=== PATIENT | female | born 1980 | race Two or more races ===

== ENCOUNTER 2020-05-30 12:10 | Outpatient (REF) | payer OTHER, SELFPAY ==
--- NOTE | 2020-05-30 | MM_ITS ---
EXAMINATION: BONE DENSITOMETRY CLINICAL INDICATION: Screening for osteoporosis. COMPARISON: None (current study represents initial baseline exam). TECHNIQUE: Using a [employer] DD DXA System (software version: 13.1) manufactured by [employer], dual-energy x-ray absorptiometry was performed of the lumbar spine and left hip. The images are of good technical quality. Summary results are attached. FINDINGS: AP SPINE L1-L4: BMD 1.092 g/cm2, Z-score -0.8, T-score -0.7, normal. LEFT FEMUR, NECK: BMD 1.054 g/cm2, Z-score 0.5, T-score 0.1, normal. LEFT FEMUR, TOTAL: BMD 1.060 g/cm2, Z-score 0.6, T-score 0.4, normal. IDENTIFIED RISK FACTORS: Early menopause, secondary osteoporosis, rheumatoid arthritis, hysterectomy, left oophorectomy. HISTORY OF FRACTURE: None listed. MEDICATIONS: None listed. MM/XR DEXA axial skeleton IMPRESSION: 1. DIAGNOSIS: Normal bone density based on the lowest T-score value of -0.7 in the lumbar spine applying World Health Organization criteria. 2. 10-YEAR FRACTURE RISK PREDICTION, FRAX: Major osteoporotic fracture (clinical spine, forearm, hip or shoulder) 1.4%. Hip fracture 0.0%. 3. Treatment Recommendations: NOF guidelines recommend consideration for treatment in postmenopausal women and men age 50 and older presenting with the following: -A hip or vertebral (clinical or morphometric) fracture. -T-score less than or equal to -2.5 at the femoral neck or spine after appropriate evaluation to exclude secondary causes. -Low bone mass at the hip or spine and a 10-year fracture probability by FRAX of greater than or equal to 3% for hip fracture or greater than or equal to 20% for major osteoporotic fracture based on the [place] adapted WHO algorithm. 4. Other Recommendations: All treatment decisions require clinical judgment and consideration of individual patient factors, including patient preferences, comorbidities, previous drug use, risk factors not captured in the FRAX model (e.g. frailty, falls, vitamin D deficiency, increased bone turnover, interval significant decline in bone density) and possible under or overestimation of fracture risk by FRAX. FUTURE SCAN RECOMMENDATION: People with diagnosed cases of osteoporosis or at high risk for fracture should have regular bone mineral density tests. For patients eligible for Medicare, routine testing is allowed once every 2 years. The testing frequency can be increased to one year for patients who have rapidly progressing disease, those who are receiving or discontinuing medical therapy to restore bone mass, or have additional risk factors.
--- NOTE | 2020-05-30 | MM_ITS ---
EXAMINATION: MM SCREENING DIGITAL BREAST TOMOSYNTHESIS, BILATERAL CLINICAL INFORMATION: Screening. Asymptomatic. No prior breast imaging. Age 40. Family history premenopausal breast cancer, maternal aunt (40s). The lifetime risk of breast cancer based on the Tyrer-Cuzick Model is 14%. COMPARISON: None (current study represents initial baseline exam). TECHNIQUE: Digital breast tomosynthesis is performed in both the craniocaudal and mediolateral oblique views along with computer-aided detection (CAD). Synthesized 2D images are generated from the tomosynthesis. Additional left MLO view is provided. FINDINGS: The breasts are heterogeneously dense, which may obscure small masses (ACR BI-RADS breast composition Category c). Breast tissue composition borders on extremely dense in the upper outer quadrants. There is no significant mass or architectural abnormality. The axilla and skin contours are unremarkable. Right breast shows no abnormal calcifications. Left breast has a few punctate calcifications posterior upper outer quadrant. Patient will be recalled to obtain magnification views to fully characterize. MM/MM tomosynthesis screening BI IMPRESSION: 1. Left: There are a some loosely grouped punctate calcifications posterior upper outer quadrant. 2. Right: No mammographic evidence of malignancy. ASSESSMENT: BI-RADS 0: Incomplete - Need Additional Imaging Evaluation RECOMMENDATION: 1. Additional views of the left breast (magnification outer CC, magnification ML). 2. Radiology department staff will contact the patient for additional imaging. This patient's information was entered into a reminder system with a target due date for their next mammogram.
== END 2020-05-30 12:11 | disposition home or self-care (01) ==
LOC: HO.MAMMO 12:10
PROVIDERS: Visit Provider Family Medicine
DX: Z12.31 Encounter for screening mammogram for malignant neoplasm of breast (principal); Z13.820 Encounter for screening for osteoporosis; Z78.0 Asymptomatic menopausal state; M06.9 Rheumatoid arthritis, unspecified; Z90.710 Acquired absence of both cervix and uterus; Z90.721 Acquired absence of ovaries, unilateral
CPT/HCPCS: 77063; 77067; 77080

== ENCOUNTER 2020-06-22 09:43 | Outpatient (REF) | payer OTHER, SELFPAY ==
--- NOTE | 2020-06-22 11:38 | XR_ITS ---
EXAMINATION: XR HAND, BILATERAL CLINICAL INFORMATION: Pain COMPARISON: None available at the time of this dictation. TECHNIQUE: Frontal lateral oblique views of both hands were obtained. Additional scaphoid views acquired. FINDINGS: There is no fracture or dislocation. Radiocarpal, intercarpal, carpometacarpal, metacarpophalangeal and interphalangeal joints are intact. There are no osteolytic or osteoblastic lesions. There are no bone erosions. Surrounding soft tissue unremarkable. XR/XR hand wrist RT IMPRESSION: Normal radiograph. No evidence of a fracture or dislocations. No significant bone erosions or significant arthritis.
--- NOTE | 2020-06-22 11:38 | XR_ITS ---
EXAMINATION: XR HAND, BILATERAL CLINICAL INFORMATION: Pain COMPARISON: None available at the time of this dictation. TECHNIQUE: Frontal lateral oblique views of both hands were obtained. Additional scaphoid views acquired. FINDINGS: There is no fracture or dislocation. Radiocarpal, intercarpal, carpometacarpal, metacarpophalangeal and interphalangeal joints are intact. There are no osteolytic or osteoblastic lesions. There are no bone erosions. Surrounding soft tissue unremarkable. XR/XR hand wrist LT IMPRESSION: Normal radiograph. No evidence of a fracture or dislocations. No significant bone erosions or significant arthritis.
[2020-06-22 11:57] LABS: MANUAL DIFF FLAG NO
[2020-06-22 12:18] LABS: Basophils Percent Auto 0.2 % (0-2); Eosinophils Absolute Auto 0.1 X10*3/uL (0.0-0.4); Eosinophils Percent Auto 1.2 % (0-4); Hematocrit 38.2 % (37-47); Hemoglobin 12.5 g/dl (12.0-16.0); Imm Gran Abs Auto 0.02 X10*3/uL (0.00-0.03); Imm Gran Pct Auto 0.4 % (0.0-0.4); Lymphocytes Absolute Auto 1.1 X10*3/uL (1.2-4.9); Lymphocytes Percent Auto 22.1 % (20-40); Mean Corpuscular HGB Conc 32.7 g/dl (31.0-35.0); Mean Corpuscular Hemoglobin 28.5 pg (27.0-33.0); Mean Corpuscular Volume 87.2 fL (80-98); Mean Platelet Volume 12.1 fL (9.4-12.3); Monocytes Absolute Auto 0.3 X10*3/uL (0.1-1.2); Monocytes Percent Auto 6.2 % (2-11); Neutrophils Absolute Auto 3.5 X10*3/uL (2.0-8.3); Neutrophils Percent Auto 69.9 % (45-73); Platelet Count 221 X10*3/uL (160-400); Red Blood Count 4.38 X10*6/uL (4.20-5.50); Red Cell Distribution Width 12.4 % (11.0-16.0)
[2020-06-22 12:24] LABS: Glucose Urine UA NEG (NEG); Leukocyte Esterase Urine NEG (NEG); Nitrite Urine NEG (NEG); Specific Gravity - Urine >= 1.030 (1.005-1.025); Urine Blood 3+ (NEG); Urine Ketones NEG (NEG); Urine Protein 1+ MG/DL (NEG-TRACE)
[2020-06-22 12:35] LABS: Appearance Urine CLOUDY; Color Urine AMBER
[2020-06-22 12:40] LABS: Alanine Aminotransferase 13 U/L (0-31); Albumin Level 3.9 g/dL (3.5-5.0); Alkaline Phosphatase 58 U/L (39-117); Anion Gap 11 (12-20); Aspartate Amino Transferase 13 U/L (5-31); Bilirubin Total 0.7 mg/dL (0.0-1.0); Blood Urea Nitrogen 14 mg/dL (9-16); C Reactive Protein 0.29 mg/dL (< or = 0.50); Calcium 8.6 mg/dL (8.4-10.2); Carbon Dioxide 26 mmol/L (22-29); Chloride 104 mmol/L (96-108); Creatinine Clr Calc Pharmacy 111.4; Estimated Glomerular Filt Rate > 60; Glucose Random 84 mg/dL (60-115); Potassium 4.4 mmol/l (3.3-5.1); Rheumatoid Factor 15.8 IU/mL (<15.0); Sodium 137 mmol/L (135-145); Total Protein 7.5 g/dL (6.5-8.0)
[2020-06-22 12:45] LABS: Squamous Epithelial Cell Urine TRACE /LPF; WBC Urine 0 /HPF (0-4)
[2020-06-22 13:52] LABS: Erythrocyte Sedimentation Rate 14 MM/HR (0-20)
[2020-06-23 08:09] LABS: HBsAGNum1 0.23 S/CO (0.00-0.99); Hepatitis A Antibody IgM 0.07 Index (0-0.79); Hepatitis B Surface Antigen Negative (Negative); ~Hepatitis A Antibody IgM Nonreactive (Nonreactive)
[2020-06-23 08:21] LABS: HBc Num1 0.17 S/CO (0.00-0.79); Hepatitis B Core Antibody Nonreactive (Nonreactive); ~HepC Num1 0.68 S/CO (0.00-0.79); ~Hepatitis C Antibody Nonreactive (Nonreactive)
[2020-06-23 11:13] LABS: Complement C3 74 mg/dL (83-193)
[2020-06-23 11:56] LABS: HBS Num1 9.92 mIU/mL (0-7.99)
[2020-06-23 12:05] LABS: HBS Num2 10.65 mIU/mL (0-7.99); HBS Num3 9.92 mIU/mL (0-7.99); ~Hepatitis B Surface Antibody GRAYZONE (Nonreactive)
[2020-06-24 11:05] LABS: Cyclic Citrullinated Peptide <16
[2020-06-24 11:09] LABS: Scleroderma 70 Antibody <1.0 NEG
[2020-06-26 08:11] LABS: Vitamin D 25-OH, D3 SEE ABOVE; Vitamin D 25-OH, Total SEE ABOVE
[2020-06-26 09:53] LABS: TS Negative Control PASSED; TS Panel A 0; TS Panel B 0; TS Positive Control PASSED
[2020-06-26 09:54] LABS: TSpotTB NEGATIVE
== END 2020-06-22 09:44 | disposition home or self-care (01) ==
LOC: HO.XRAY 09:43
PROVIDERS: PCP Family Medicine; Visit Provider Student in an Organized Health Care Education/Training Program
DX: M25.50 Pain in unspecified joint (principal); R76.8 Other specified abnormal immunological findings in serum
CPT/HCPCS: 36415; 73110; 73130; 80053; 81001; 82306; 85025; 85652; 86140; 86160; 86200; 86225; 86235; 86431; 86481; 86704; 86706; 86709; 86803; 87340; 99202

== ENCOUNTER 2020-06-27 10:51 | Outpatient (REF) | payer OTHER, SELFPAY ==
--- NOTE | 2020-06-27 10:57 | MM_ITS ---
EXAMINATION: MM DIAGNOSTIC DIGITAL MAMMOGRAPHY, LEFT CLINICAL INFORMATION: Recall from baseline mammography for loosely grouped punctate calcifications posterior upper outer left breast. COMPARISON: Mammography: 05/30/2020 (baseline) TECHNIQUE: Digital mammography is performed in the following views: Magnification CC, magnification ML. FINDINGS: The breasts are heterogeneously dense, which may obscure small masses (ACR BI-RADS breast composition Category c). The additional magnification views show a few punctate round calcifications in the area of interest. There are no pleomorphic calcifications or ductal distribution. Results are discussed with the patient at time of visit. The calcifications appear benign. As chronicity is unknown, short interval follow-up will be requested in 6 months to confirm stability. MM/MM added views LT IMPRESSION: Benign-appearing calcifications in area of interest posterior upper outer left breast, unknown chronicity. ASSESSMENT: BI-RADS 3: Probably Benign RECOMMENDATION: Diagnostic left mammography in 6 months. This patient's information was entered into a reminder system with a target due date for their next mammogram.
== END 2020-06-27 10:52 | disposition home or self-care (01) ==
LOC: HO.MAMMO 10:51
PROVIDERS: PCP Family Medicine; Visit Provider Family Medicine
DX: R92.1 Mammographic calcification found on diagnostic imaging of breast (principal)
CPT/HCPCS: 77065

== ENCOUNTER 2020-06-30 15:49 | Outpatient (REF) | payer OTHER, SELFPAY | END 2020-06-30 15:50 | disposition home or self-care (01) | LOC: HO.LAB 15:49 | PROVIDERS: Visit Provider Internal Medicine | DX: Z20.822 Contact with and (suspected) exposure to COVID-19 (principal) | CPT/HCPCS: 36415; C9803; U0003 ==

== ENCOUNTER → 2020-07-14 08:35 | Outpatient (BNVA) | payer OTHER, SELFPAY | PROVIDERS: PCP Family Medicine; Visit Provider Student in an Organized Health Care Education/Training Program | DX: R76.8 Other specified abnormal immunological findings in serum (principal); E55.9 Vitamin D deficiency, unspecified; M25.50 Pain in unspecified joint | CPT/HCPCS: 99212 ==

== ENCOUNTER 2020-07-27 08:22 | Outpatient (REF) | payer OTHER, SELFPAY | END 2020-07-27 08:23 | disposition home or self-care (01) | LOC: HO.LAB 08:22 | PROVIDERS: Visit Provider Internal Medicine | DX: Z20.822 Contact with and (suspected) exposure to COVID-19 (principal) | CPT/HCPCS: 36415; C9803; U0003; U0005 ==

== ENCOUNTER 2020-08-24 11:48 | Outpatient (REF) | payer OTHER, SELFPAY | END 2020-08-24 11:49 | disposition home or self-care (01) | LOC: HO.LAB 11:48 | PROVIDERS: Visit Provider Internal Medicine | DX: Z20.822 Contact with and (suspected) exposure to COVID-19 (principal) | CPT/HCPCS: 36415; C9803; U0003; U0005 ==

== ENCOUNTER 2020-10-19 11:24 | Outpatient (REF) | payer OTHER, SELFPAY ==
[2020-10-19 12:29] LABS: MANUAL DIFF FLAG NO
[2020-10-19 12:35] LABS: Basophils Percent Auto 0.1 % (0-2); Eosinophils Absolute Auto 0.1 X10*3/uL (0.0-0.4); Eosinophils Percent Auto 1.6 % (0-4); Hematocrit 35.7 % (37-47); Hemoglobin 11.6 g/dl (12.0-16.0); Imm Gran Abs Auto 0.03 X10*3/uL (0.00-0.03); Imm Gran Pct Auto 0.4 % (0.0-0.4); Lymphocytes Absolute Auto 1.6 X10*3/uL (1.2-4.9); Lymphocytes Percent Auto 23.3 % (20-40); Mean Corpuscular HGB Conc 32.5 g/dl (31.0-35.0); Mean Platelet Volume 11.7 fL (9.4-12.3); Monocytes Absolute Auto 0.2 X10*3/uL (0.1-1.2); Monocytes Percent Auto 2.2 % (2-11); Neutrophils Absolute Auto 4.9 X10*3/uL (2.0-8.3); Neutrophils Percent Auto 72.4 % (45-73); Platelet Count 204 X10*3/uL (160-400); Red Blood Count 4.15 X10*6/uL (4.20-5.50); Red Cell Distribution Width 12.8 % (11.0-16.0); White Blood Count 6.8 X10*3/uL (4.8-10.8)
[2020-10-19 12:46] LABS: Glucose Urine UA NEG (NEG); Leukocyte Esterase Urine NEG (NEG); Nitrite Urine NEG (NEG); PH 6.5 (5.0-8.0); Urine Blood NEG (NEG); Urine Ketones NEG (NEG); Urine Protein NEG (NEG-TRACE)
[2020-10-19 12:48] LABS: Appearance Urine CLEAR; Color Urine YELLOW
[2020-10-19 12:55] LABS: Alanine Aminotransferase 8 U/L (0-31); Albumin Level 3.8 g/dL (3.5-5.0); Alkaline Phosphatase 50 U/L (39-117); Anion Gap 11 (12-20); Aspartate Amino Transferase 13 U/L (5-31); Bilirubin Total 0.5 mg/dL (0.0-1.0); Blood Urea Nitrogen 11 mg/dL (9-16); Carbon Dioxide 28 mmol/L (22-29); Chloride 104 mmol/L (96-108); Estimated Glomerular Filt Rate > 60; Glucose Random 88 mg/dL (60-115); Potassium 4.2 mmol/L (3.3-5.1); Sodium 139 mmol/L (135-145); Total Protein 7.1 g/dL (6.5-8.0)
[2020-10-19 13:18] LABS: Bacteria Urine TRACE /LPF; RBC Urine 0 /HPF (0); Squamous Epithelial Cell Urine 1+ /LPF; WBC Urine 0 /HPF (0-4)
[2020-10-19 13:53] LABS: Erythrocyte Sedimentation Rate 16 MM/HR (0-20)
[2020-10-19 14:00] LABS: Creatinine Urine 19.94 mg/dL; Total Protein Urine Random < 7 mg/dL (<12)
[2020-10-20 11:26] LABS: Complement C3 87 mg/dL (83-193)
[2020-10-20 12:16] LABS: Anti DNA DS Antibody 5 IU/mL; Antibody to SS-B Antigen <1.0 NEG AI (<1.0 NEG); SM/Ribonucleoprotein Ab <1.0 NEG AI (<1.0 NEG); Scleroderma 70 Antibody <1.0 NEG AI (<1.0 NEG); Smith Protein <1.0 NEG AI (<1.0 NEG)
[2020-10-21 21:12] LABS: TS Negative Control Passed; TS Panel A 0; TS Panel B 0; TS Positive Control Passed; TSpotTB Negative (SeeBelow)
[2020-10-24 12:33] LABS: Cyclic Citrullinated Peptide <16 UNITS
[2020-10-26 17:01] LABS: Vitamin D 25-OH, D2 <4 ng/mL; Vitamin D 25-OH, D3 51 ng/mL; Vitamin D 25-OH, Total 51 ng/mL (30-100)
== END 2020-10-19 11:25 | disposition home or self-care (01) ==
LOC: HO.LAB 11:24
PROVIDERS: PCP Family Medicine; Visit Provider Student in an Organized Health Care Education/Training Program
DX: R76.8 Other specified abnormal immunological findings in serum (principal)
CPT/HCPCS: 36415; 80053; 81001; 82306; 84156; 85025; 85652; 86140; 86160; 86200; 86225; 86235; 86481

== ENCOUNTER 2020-10-31 10:13 | Outpatient (REF) | payer OTHER, SELFPAY ==
[2020-10-31 12:24] LABS: Glucose Urine UA NEG (NEG); Leukocyte Esterase Urine NEG (NEG); Nitrite Urine NEG (NEG); Urine Blood 3+ (NEG); Urine Ketones NEG (NEG); Urine Protein NEG (NEG-TRACE)
[2020-10-31 12:29] LABS: Appearance Urine CLEAR; Color Urine YELLOW
[2020-10-31 12:50] LABS: Squamous Epithelial Cell Urine 1+ /LPF; WBC Urine 0 /HPF (0-4)
[2020-11-01 08:13] LABS: HBc Num1 0.13 S/CO (0.00-0.79); HIV AB/AG Nonreactive (Nonreactive); HIV Num 1 0.06 S/CO (0.00-0.99); Hepatitis B Core Antibody Nonreactive (Nonreactive)
[2020-11-01 08:38] LABS: ~HepC Num1 0.66 S/CO (0.00-0.79); ~Hepatitis C Antibody Nonreactive (Nonreactive)
[2020-11-01 09:07] LABS: Syphilis Screen Nonreactive (Nonreactive)
[2020-11-01 10:57] LABS: Complement C3 40 mg/dL (83-193)
[2020-11-01 12:31] LABS: Anti DNA DS Antibody 5 IU/mL
[2020-11-01 12:51] LABS: CT PCR NOT DETECTED (Not Detect.); NG PCR NOT DETECTED (Not Detect.)
[2020-11-03 06:31] LABS: HPV mRNA E6/E7 rflx Not Detected (Not Detected)
== END 2020-10-31 10:14 | disposition home or self-care (01) ==
LOC: HO.LAB 10:13
PROVIDERS: Student in an Organized Health Care Education/Training Program; PCP Family Medicine; Visit Provider Advanced Practice Midwife
DX: Z01.419 Encounter for gynecological examination (general) (routine) without abnormal findings (principal); Z11.3 Encounter for screening for infections with a predominantly sexual mode of transmission; Z11.51 Encounter for screening for human papillomavirus (HPV); Z11.4 Encounter for screening for human immunodeficiency virus [HIV]; Z01.84 Encounter for antibody response examination; Z20.2 Contact with and (suspected) exposure to infections with a predominantly sexual mode of transmission; R76.8 Other specified abnormal immunological findings in serum
CPT/HCPCS: 36415; 81001; 86160; 86225; 86704; 86780; 86803; 87389; 87491; 87591; 87624; 88142

== ENCOUNTER → 2020-11-07 12:51 | Outpatient (BNVA) | payer OTHER, SELFPAY | PROVIDERS: PCP Family Medicine; Visit Provider Student in an Organized Health Care Education/Training Program | DX: R76.8 Other specified abnormal immunological findings in serum (principal); E55.9 Vitamin D deficiency, unspecified; M75.101 Unspecified rotator cuff tear or rupture of right shoulder, not specified as traumatic; M75.102 Unspecified rotator cuff tear or rupture of left shoulder, not specified as traumatic | CPT/HCPCS: 99212 ==

== ENCOUNTER 2020-12-25 09:47 | Outpatient (REF) | payer OTHER, SELFPAY ==
--- NOTE | ~2020-12-25 | MM_ITS ---
EXAMINATION: MM DIAGNOSTIC DIGITAL BREAST TOMOSYNTHESIS, LEFT CLINICAL INFORMATION: Short interval six-month follow-up probable benign loosely grouped calcifications posterior upper outer left breast initially noted at baseline exam. Family history premenopausal breast cancer, maternal aunt. The lifetime risk of breast cancer based on the Tyrer-Cuzick Model is 14%. COMPARISON: Mammography: 06/27/2020, 05/30/2020 (BI-RADS 0, baseline). TECHNIQUE: Digital breast tomosynthesis is performed in both the craniocaudal and mediolateral oblique views along with computer-aided detection (CAD). Synthesized 2D images are generated from the tomosynthesis. FINDINGS: The breasts are heterogeneously dense, which may obscure small masses (ACR BI-RADS breast composition Category c). There is no interval mass or architectural abnormality. The loosely grouped round calcifications posterior upper outer left breast is similar to prior diagnostic exam. They will be reassessed at annual bilateral mammography, due in 6 months. Results are provided to the patient at time of visit by the technologist. MM/MM tomosynthesis diagnostic LT IMPRESSION: No significant changes from prior diagnostic exam. ASSESSMENT: BI-RADS 3: Probably Benign RECOMMENDATION: Diagnostic mammography at time of annual bilateral mammography, due in 6 months. This patient's information was entered into a reminder system with a target due date for their next mammogram.
[2020-12-25 11:46] LABS: MANUAL DIFF FLAG NO
[2020-12-25 11:51] LABS: Basophils Percent Auto 0.4 % (0-2); Eosinophils Absolute Auto 0.1 X10*3/uL (0.0-0.4); Eosinophils Percent Auto 1.9 % (0-4); Hematocrit 39.1 % (37-47); Hemoglobin 12.9 g/dl (12.0-16.0); Imm Gran Abs Auto 0.02 X10*3/uL (0.00-0.03); Imm Gran Pct Auto 0.4 % (0.0-0.4); Lymphocytes Absolute Auto 1.2 X10*3/uL (1.2-4.9); Lymphocytes Percent Auto 21.6 % (20-40); Mean Corpuscular Hemoglobin 28.4 pg (27.0-33.0); Mean Corpuscular Volume 85.9 fL (80-98); Mean Platelet Volume 11.8 fL (9.4-12.3); Monocytes Absolute Auto 0.2 X10*3/uL (0.1-1.2); Monocytes Percent Auto 3.4 % (2-11); Neutrophils Absolute Auto 3.9 X10*3/uL (2.0-8.3); Neutrophils Percent Auto 72.3 % (45-73); Platelet Count 199 X10*3/uL (160-400); Red Blood Count 4.55 X10*6/uL (4.20-5.50); Red Cell Distribution Width 12.3 % (11.0-16.0); White Blood Count 5.3 X10*3/uL (4.8-10.8)
[2020-12-25 12:10] LABS: Alanine Aminotransferase 16 U/L (0-31); Albumin Level 3.9 g/dL (3.5-5.0); Alkaline Phosphatase 53 U/L (39-117); Anion Gap 11 (12-20); Aspartate Amino Transferase 17 U/L (5-31); Bilirubin Total 0.8 mg/dL (0.0-1.0); Blood Urea Nitrogen 10 mg/dL (9-16); C Reactive Protein 0.42 mg/dL (< or = 0.50); Carbon Dioxide 26 mmol/L (22-29); Chloride 104 mmol/L (96-108); Estimated Glomerular Filt Rate > 60; Glucose Random 89 mg/dL (60-115); Potassium 4.3 mmol/L (3.3-5.1); Sodium 137 mmol/L (135-145); Total Protein 7.4 g/dL (6.5-8.0)
[2020-12-25 12:36] LABS: Erythrocyte Sedimentation Rate 9 MM/HR (0-20)
[2020-12-25 13:01] LABS: Glucose Urine UA NEG (NEG); Leukocyte Esterase Urine NEG (NEG); Nitrite Urine POS (NEG); Specific Gravity - Urine 1.025 (1.005-1.025); Urine Blood 3+ (NEG); Urine Ketones NEG (NEG); Urine Protein NEG (NEG-TRACE)
[2020-12-25 13:04] LABS: Appearance Urine HAZY; Color Urine YELLOW
[2020-12-25 13:15] LABS: Amorphous Sediment Urine 2+ /LPF; Bacteria Urine TRACE /LPF; RBC Urine 0 /HPF (0); Squamous Epithelial Cell Urine 2+ /LPF; WBC Urine 0-2 /HPF (0-4)
[2020-12-26 15:12] LABS: Complement C3 96 mg/dL (83-193)
[2020-12-27 14:56] LABS: Anti DNA DS Antibody 4 IU/mL
== END 2020-12-25 09:48 | disposition home or self-care (01) ==
LOC: HO.MAMMO 09:47
PROVIDERS: Student in an Organized Health Care Education/Training Program; PCP Family Medicine; Visit Provider Family Medicine
DX: R92.1 Mammographic calcification found on diagnostic imaging of breast (principal); R76.8 Other specified abnormal immunological findings in serum
CPT/HCPCS: 36415; 77061; 77065; 80053; 81001; 85025; 85652; 86140; 86160; 86225

== ENCOUNTER → 2021-01-10 15:29 | Outpatient (BNVA) | payer OTHER, SELFPAY | PROVIDERS: Visit Provider Student in an Organized Health Care Education/Training Program | DX: R76.8 Other specified abnormal immunological findings in serum (principal); E55.9 Vitamin D deficiency, unspecified | CPT/HCPCS: 99212 ==

== ENCOUNTER 2021-01-26 15:00 | Outpatient (RCR) | payer OTHER, SELFPAY ==
--- NOTE | 2021-01-17 16:02 | MHC.PT.EP ---
[facility] [place] Office [place] Office [place] Office [address] Juan Guerrero [address] [phone] F: [phone] F: [phone] F: [phone] F: [phone] Physical Therapy Plan of Care Date of Evaluation: Date of Surgery: N/A Diagnosis: rotator cuff tear, right shoulder Assessment: pt's signs and symptoms consistent with cervical radiculopathy as pt centralized with repeated retractions. pt had no reproduction of symptoms w/ TOS testing or ULTTs. pt presents to physical therapy with pain, decreased range of motion, decreased strength, impaired functional mobility, and impaired postural awareness. pt is a good candidate for skilled PT due to age, potential remediation of impairments, typical disease/condition progression and prognosis, comorbidities, and motivation. pt would benefit from tailored strengthening and stretching exercise program, functional training, postural re-training, neuromuscular re-education, modalities as needed for pain, equipment safety demonstration. Frequency and Duration: The patient will be seen 2x/wk for 5 wks Short Term Goals: pt will be I w/ HEP to promote self-management of condition. pt will demo proper sitting w/ lumbar roll to promote neutral spine to reduce radicular symptoms. 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 pt will improve B shoulder flexion and abduction strength by >1 MMT grade to promote ease in carrying groceries. Treatment Plan: Modalities to reduce pain, spasms and effusion. Manual therapy to restore motion and function. Therapeutic exercise to improve strength and flexibility. Neuromuscular re-education for posture and balance. Therapeutic activities to return to functional activities of daily living. Electronically signed by: Trinity Coon PT, DPT Please sign and return to therapist. Thank you for your referral.
--- NOTE | 2021-02-02 14:17 | MHC.PT.DC ---
[facility] [place] Office [place] Office [place] Office [address] Juan Guerrero [address] [facility] [phone] F: [phone] F: [phone] F: [phone] F: [phone] Physical Therapy Discharge Report Diagnosis: rotator cuff tear, right shoulder Date of Surgery: N/A Date of Evaluation: 01/17/21 Date of Discharge: 02/02/21 Treatments to Date: 2 Cancellations to Date: 0 No Shows to Date: 3 Discharge Status: Visit Non-compliance Discharge Summary: The patient has no showed three total appointments. Per [facility] policy she is discharged from this physical therapy plan of care. Electronically signed by: Trinity Coon PT, DPT Please sign and return to therapist. Thank you for your referral.
== END 2021-02-02 14:18 | disposition home or self-care (01) ==
LOC: HO.PT 15:00
PROVIDERS: PCP Family Medicine; Visit Provider Student in an Organized Health Care Education/Training Program
DX: M75.101 Unspecified rotator cuff tear or rupture of right shoulder, not specified as traumatic (principal)
CPT/HCPCS: 97110; 97150; 97162

== ENCOUNTER 2021-07-04 14:38 | Outpatient (REF) | payer OTHER, SELFPAY ==
--- NOTE | ~2021-07-04 | MM_ITS ---
EXAMINATION: MM DIAGNOSTIC DIGITAL BREAST TOMOSYNTHESIS, BILATERAL CLINICAL INFORMATION: Due for yearly. Also follow-up probable benign calcifications posterior upper outer left breast initially noted at baseline exam. Family history premenopausal breast cancer, maternal aunt. The lifetime risk of breast cancer based on the Tyrer-Cuzick Model is 11%. COMPARISON: Mammography: 12/25/2020, 06/27/2020, 05/30/2020 (baseline, BI-RADS 0) TECHNIQUE: Digital breast tomosynthesis is performed in both the craniocaudal and mediolateral oblique views along with computer-aided detection (CAD). Synthesized 2D images are generated from the tomosynthesis. Additional views are obtained: Left MLO, standard magnification left CC, magnification left ML. FINDINGS: The breasts are heterogeneously dense, which may obscure small masses (ACR BI-RADS breast composition Category c). Denser breast tissue composition is predominantly in the upper outer quadrants. Parenchymal pattern is similar to prior studies. There is no developing density or interval mass or architectural abnormality. The axilla and skin contours are unremarkable. A few loosely grouped round calcifications posterior upper outer left breast are stable. There are benign-appearing. They will be reassessed again at time of annual bilateral mammography, due in 12 months. Results are provided to the patient at time of visit by the technologist. MM/MM tomosynthesis diagnostic BI IMPRESSION: No significant changes from prior exams. ASSESSMENT: BI-RADS 3: Probably Benign RECOMMENDATION: Diagnostic mammography at time of next annual exam, due in 12 months. This patient's information was entered into a reminder system with a target due date for their next mammogram.
== END 2021-07-04 14:39 | disposition home or self-care (01) ==
LOC: HO.MAMMO 14:38
PROVIDERS: PCP Family Medicine; Visit Provider Hospitalist
DX: R92.8 Other abnormal and inconclusive findings on diagnostic imaging of breast (principal)
CPT/HCPCS: 77062; 77066

== ENCOUNTER 2021-11-02 10:08 | Outpatient (REF) | payer OTHER, SELFPAY ==
[2021-11-02 17:12] LABS: CT PCR NOT DETECTED (Not Detect.); NG PCR NOT DETECTED (Not Detect.)
== END 2021-11-02 10:09 | disposition home or self-care (01) ==
LOC: HO.LAB 10:08
PROVIDERS: PCP Family Medicine; Visit Provider Advanced Practice Midwife
DX: Z01.419 Encounter for gynecological examination (general) (routine) without abnormal findings (principal); Z20.2 Contact with and (suspected) exposure to infections with a predominantly sexual mode of transmission; N39.3 Stress incontinence (female) (male)
CPT/HCPCS: 87491; 87591

== ENCOUNTER 2022-07-15 10:22 | Outpatient (REF) | payer OTHER, SELFPAY ==
--- NOTE | ~2022-07-15 | MM_ITS ---
EXAMINATION: MM DIAGNOSTIC DIGITAL BREAST TOMOSYNTHESIS, BILATERAL CLINICAL INFORMATION: Due for yearly. Also follow-up probable benign calcifications posterior upper outer left breast initially noted at baseline exam. Family history premenopausal breast cancer, maternal aunt. TC score 11%. COMPARISON: Mammography: 07/04/2021, 12/25/2020, 06/27/2020, 05/30/2020 (baseline, BI-RADS 0). TECHNIQUE: Digital breast tomosynthesis is performed in both the craniocaudal and mediolateral oblique views along with computer-aided detection (CAD). Synthesized 2D images are generated from the tomosynthesis. FINDINGS: The breasts are heterogeneously dense, which may obscure small masses (ACR BI-RADS breast composition Category c). There are no significant masses, abnormal calcifications, or other abnormalities. Breast tissue composition borders on extremely dense in the upper outer quadrants. Parenchymal pattern is similar to prior exams. There is no developing density or interval mass or architectural abnormality. The benign-appearing calcifications posterior left breast noted at baseline are stable and now considered to be benign. The axilla and skin contours are unremarkable. No significant changes. Results are provided to the patient at time of visit by the technologist. MM/MM tomosynthesis diagnostic BI IMPRESSION: -No mammographic evidence of malignancy. ASSESSMENT: BI-RADS 2: Benign RECOMMENDATION: Routine annual mammography screening. This patient's information was entered into a reminder system with a target due date for their next mammogram.
== END 2022-07-15 10:23 | disposition home or self-care (01) ==
LOC: HO.MAMMO 10:22
PROVIDERS: Visit Provider Hospitalist
DX: R92.1 Mammographic calcification found on diagnostic imaging of breast (principal)
CPT/HCPCS: 77062; 77066

== ENCOUNTER → 2022-12-25 14:37 | Outpatient (BNVA) | payer SELFPAY | PROVIDERS: PCP Family Medicine; Visit Provider Physician Assistant | DX: Z02.79 Encounter for issue of other medical certificate (principal) ==

== ENCOUNTER 2023-04-15 09:54 | Outpatient (REF) | payer OTHER, SELFPAY ==
[2023-04-15 12:51] LABS: HIV AB/AG Nonreactive (Nonreactive); HIV Num 1 0.05 S/CO (0.00-0.99); Hepatitis B Core Antibody Nonreactive (Nonreactive); Syphilis Screen Nonreactive (Nonreactive); ~HepC Num1 0.25 S/CO (0.00-0.79); ~Hepatitis C Antibody Nonreactive (Nonreactive)
[2023-04-15 16:23] LABS: CT PCR NOT DETECTED (Not Detect.); NG PCR NOT DETECTED (Not Detect.)
[2023-04-16 11:18] LABS: BV Int Neg Control Negative (Negative); BV Int Pos Control Positive (Positive)
== END 2023-04-15 09:55 | disposition home or self-care (01) ==
LOC: HO.LAB 09:54
PROVIDERS: PCP Family Medicine; Visit Provider Advanced Practice Midwife
DX: Z01.419 Encounter for gynecological examination (general) (routine) without abnormal findings (principal); Z20.2 Contact with and (suspected) exposure to infections with a predominantly sexual mode of transmission
CPT/HCPCS: 0353U; 86704; 86780; 86803; 87389; 87480; 87510; 87660; 99396

== ENCOUNTER 2023-04-15 09:54 | Outpatient (AMB) | payer OTHER, SELFPAY ==
[2023-04-15 10:01] VITALS: BP 110/72; BMI 28.7
--- NOTE | 2023-04-15 10:01 | A.OFFVIS_ITS ---
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 Doing well with no concerns. She tries to eat healthy and stays active with exercise. Regular monthly menses and are normal. She denies vaginal itching and irritation. Not sexually active. STI screening offered; she accepts. Denies family history of breast, ovarian or colon cancer. Last pap smear 10/2020, was negative. Mammogram is UTD. [facility] Medical History Rheumatoid factor positive SIDNEY positive Surgical History Hx of tubal ligation H/O oophorectomy Family History Maternal Aunt History of breast cancer Cervical cancer Colon cancer Social History Household Members: Children Alcohol intake: current Alcohol intake frequency: holidays/special occasions only Patient Tobacco Use Status: Former Tobacco user Sexual orientation: Straight/Heterosexual Gender identity: Female Female Reproductive History Menstrual Age of Menarche: 10 Duration of menses: 3-5 days Date of last menstrual period: 04/09/23 control method: permanent sterilization Permanent Sterilization: BTL Total pregnancies: 2 Full term: 2 Number of Living Children: 2 Date of last pap smear: 10/31/20 (neg pap and hpv) History of abnormal pap smear: Yes (yrs ago) Date of Mammogram: 07/15/22 (Birad 2) Review of Systems Const All systems reviewed & are unremarkable except as noted in HPI and below Reports as per HPI Eyes Reports no additional complaints ENT Reports no additional complaints Card Reports no additional complaints Resp Reports no additional complaints GI Reports as per HPI and Reports no additional complaints Reports as per HPI Musc Reports no additional complaints Skin/Breast Reports as per HPI Neuro Reports no additional complaints Psych Reports no additional complaints Endo Reports no additional complaints Khris/Lymph Reports no additional complaints Aller/Immun Reports no additional complaints Physical Exam Vital Signs: Last Vital Signs BP 110/72 04/15/23 10:01 BMI result Body Mass Index 28.7 Const General: cooperative, healthy appearing, no acute distress, well developed and alert Orientation/consciousness: patient oriented x3 HEENT Head: Yes normal to inspection Eyes General: appearance normal, both eyes and all related structures Neck Neck: Yes normal visual inspection Thyroid: Thyroid normal Chest Chest palpation & inspection: normal inspection of the chest and other (no puckering, dimpling, peau de orange, retraction, discharge, masses) Breast/axilla inspection: normal inspection of the breasts Breast/axilla palpation: normal palpation of the breasts Resp Effort & Inspection: normal respiratory effort GI Inspection: Yes normal to inspection Palpation (GI): Soft to palpation Rectal Exam - Female: deferred General: Yes bladder normal to palpation External Female Exam: normal external appearance and normal appearance of the urethra Speculum Exam - Vagina: normal appearance of the vagina, normal palpation, normal vaginal discharge and other (small amt. brown blood) Speculum Exam - Cervix: normal appearance of the cervix and normal palpation Bimanual exam- vagina & uterus: normal bimanual exam, normal palpation, uterine size normal, bladder normal to palpation, normal palpation and non-tender Bimanual Exam- Adnexa, other: no masses Skin General skin exam: no rashes or lesions noted Rashes: no rashes Neuro General: patient oriented x3 Cognition (Neuro): normal cognition Extrem General: Yes normal to inspection Psych Attitude: cooperative Thought process: Normal thought process present Assessment & Plan Assessment & Plan (1) Encounter for well woman exam with routine gynecological exam: Code(s): Z01.419 - Encounter for gynecological examination (general) (routine) without abnormal findings Plan: Discussed: Current recommendations for pap smears per ASCCP guidelines. Breast awareness and periodic breast exams. Maintain a healthy lifestyle including a well balanced diet and routine exercise. Use condoms for STI and prevention. All of her questions and concerns were addressed to the best of my ability. 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 Orders: Orders Bacterial Vaginosis Panel Today Z20.2 - Contact with and (suspected) exposure to infections with a predominantly sexual mode of transmission Hepatitis B Core Antibody Today Z20.2 - Contact with and (suspected) exposure to infections with a predominantly sexual mode of transmission Syphilis Screen Today Z20.2 - Contact with and (suspected) exposure to infections with a predominantly sexual mode of transmission HIV Ab/Ag Today Z20.2 - Contact with and (suspected) exposure to infections with a predominantly sexual mode of transmission CT NG by PCR Today Z20.2 - Contact with and (suspected) exposure to infections with a predominantly sexual mode of transmission Hepatitis C Antibody Today Z20.2 - Contact with and (suspected) exposure to infections with a predominantly sexual mode of transmission Coding Level of Care Code Est Pt Prev Care 40-64y(34999) Diagnoses Encounter for well woman exam with routine gynecological exam Z01.419
== END 2023-04-15 10:26 | disposition home or self-care (01) ==
LOC: HO.HWS 09:54
PROVIDERS: PCP Family Medicine; Visit Provider Advanced Practice Midwife
DX: Z01.419 Encounter for gynecological examination (general) (routine) without abnormal findings (principal)
CPT/HCPCS: 99396

== ENCOUNTER 2023-04-15 10:23 | Outpatient (REF) | payer OTHER, SELFPAY | END 2023-04-15 10:24 | disposition home or self-care (01) | LOC: HO.LNP 10:23 | PROVIDERS: Visit Provider Advanced Practice Midwife | DX: Z13.89 Encounter for screening for other disorder (principal) ==

== ENCOUNTER 2023-07-14 09:40 | Outpatient (AMB) | payer OTHER, SELFPAY ==
[2023-07-14 10:21] VITALS: BP 114/74; PULSE 83; O2SAT 97; BMI 29.9
--- NOTE | 2023-07-14 10:21 | MHC.PC.OV ---
Vital Signs 07/14/23 10:21 Height 5 ft 7 in Weight 191 lb BMI 29.9 BP 114/74 Blood Pressure Location Lt brachial Position Sitting Pulse 83 Pulse Source Pulse Oximeter Pulse Oximetry (%) 97 Oxygen Delivery Method Room Air Intake Visit Reasons: re est care Intake Note: Patient is here with request of reverral for colonoscopy Allergies No Known Allergies Allergy (Verified 07/14/23 10:22) Tobacco use date assessed: 07/14/23 Dental Screening Dental Screen Date: 07/14/23 Did you have a dental visit in the last 12 months?: Yes Did you have a dental problem in the last 6 months where you did not have access to dental care?: No Was dental information given to patient?: Patient has dentist HPI re est care HPI Details New patient/Re-est. Care Prior PCP:? Last office visit/CPE: Acute issue(s): She notes polyarthralgia has improved and does not experience as much symptoms as before PMHx: Fibromyalgia, Polyarthralgia, Rheumatoid factor positive, SIDNEY positive SurgHx: Hysterectomy, Csection x2 FHx: Mom: Thyroid disease, HTN. Dad: Blood sugar and HTN. Colon polyps, Kidney stones SocHx: Cigs quit 2016. EtOH occasional. No drugs. PFSH Medical History Rheumatoid factor positive SIDNEY positive Surgical History Hx of tubal ligation H/O oophorectomy Family History Maternal Aunt History of breast cancer Cervical cancer Colon cancer Social History Household Members: Children Housing: Apartment Alcohol intake: current Alcohol intake frequency: holidays/special occasions only Patient Tobacco Use Status: Former Tobacco user e-Cigarette/Vaping Use: Never Used service: No Current occupational status: employed Current occupation: [employer] Sexual orientation: Straight/Heterosexual Gender identity: Female Cognitive needs: No Hearing needs: No Vision needs: Yes (Patient wears glasses) Female Reproductive History Menstrual Age of Menarche: 10 Questionnaire PHQ-9 Over the last 2 weeks, how often have you been bothered by any of the following problems? 1. Little interest or pleasure in doing things: not at all 2. Feeling down, depressed, or hopeless: not at all 3. Trouble falling or staying asleep, or sleeping too much: several days 4. Feeling tired or having little energy: not at all 5. Poor appetite or overeating: not at all 6. Feeling bad about yourself - or that you are a failure or have let yourself or your family down: several days 7. Trouble concentrating on things, such as reading the newspaper or watching television: not at all 8. Moving or speaking so slowly that other people could have noticed. Or the opposite - being so fidgety or restless that you have been moving around a lot more than usual: not at all 9. Thoughts that you would be better off or of hurting yourself in some way: not at all Total score: 2 Source: Developed by Drs. Jason Perez, Ethel Norton, Jonatan Escamilla and colleagues, with an educational lisa from [employer]. Thrive Questionnaire Date Thrive assessed: 07/14/23 I am a: Patient What is your living situation today?: I have a steady place to live Within the past 12 months, did the food you bought not last and you didn't have the money to get more?: Never true Within the past 12 months, did you worry whether your food would run out before you got money to buy more?: Never true Do you have trouble paying for medicines?: No Do you have trouble getting transportation to medical appointments?: No Do you have trouble paying your heating and electricity bill?: No Do you have trouble taking care of your child, family member or friend?: No Do you have trouble with day-to-day activities such as bathing, preparing meals, shopping, managing finances, etc.?: No Are you currently unemployed and looking for a job?: No Are you interested in more education?: No THRIVE Score: 0 AUDIT C Alcohol Use Questionnaire (AUDIT-C) 1. How often do you have a drink containing alcohol?: Monthly or less 2. How many drinks containing alcohol do you have on a typical day when you are drinking?: 1 or 2 3. How often do you have six or more drinks on one occasion?: Never Total Score: 1 MIKAELA-7 AMB Questionnaire MIKAELA-7 Date MIKAELA - 7 assessed: 07/14/23 Feeling nervous, anxious, or on edge: 1 = Several days Not being able to stop or control worryin = Several days Worrying too much about different things: 2 = More than half the days Trouble relaxin = Not at all Being so restless that it is hard to sit still: 0 = Not at all Becoming easily annoyed or irritable: 1 = Several days Feeling afraid as if something awful might happen: 1 = Several days Total MIKAELA-7 score (0-4 normal; 5-9 mild; 10-14 moderate; 15-21 severe): 6 Source: Developed by Drs. Jason Perez, Ethel Norton, Jonatan Escamilla and colleagues, with an educational lisa from [employer]. ACT Questionnaire In the past 4 weeks, how much of the time did your asthma keep you from getting as much done at work, school or at home?: A little of the time During the past 4 weeks, how often have you had shortness of breath?: Not at all During the past 4 weeks, how often did your asthma symptoms wake you up at night or earlier than usual in the morning?: Once a week During the past 4 weeks, how often have you had to use your rescue inhaler or nebulizer medication?: Once a week or less How would you rate your asthma control during the past 4 weeks?: Somewhat controlled Score: 19 Physical exam (Primary Care) Vital Signs: Last Vital Signs Pulse 83 07/14/23 10:21 BP 114/74 07/14/23 10:21 Pulse Ox 97 07/14/23 10:21 Oxygen Delivery Method Room Air 07/14/23 10:21 BMI result Body Mass Index 29.9 Tobacco/Smoking Status: Tobacco use Status Tobacco use date assessed 07/14/23 07/14/23 10:32 Patient Tobacco Use Status Former Tobacco user 07/14/23 10:32 e-Cigarette/Vaping Use Never Used 07/14/23 10:32 PHQ-9: PHQ-9 Score PHQ-9: Total score 2 07/14/23 10:54 Thrive Assessment: Date of Thrive Assessment Date Thrive assessed 07/14/23 07/14/23 10:32 Assessment and Plan Assessment & Plan (1) Fibromyalgia: Code(s): M79.7 - Fibromyalgia Plan: Encouraged?active?lifestyle?and?regular?exercise (2) Polyarthralgia: Code(s): M25.50 - Pain in unspecified joint Plan: Fairly?stable?at?present. Check?labs?including?inflammatory?markers Will?refer?her?back?to?Rheumatology?at?her?request (3) Rheumatoid factor positive: Code(s): R76.8 - Other specified abnormal immunological findings in serum Plan: As?above,?referred?back?to?Rheumatology (4) Family history of colon polyps, unspecified: Code(s): Z83.719 - Family history of colon polyps, unspecified Plan: Referred?to?gastroenterology?for?colon?cancer?screening (5) Laboratory exam ordered as part of routine general medical examination: Code(s): Z00.00 - Encounter for general adult medical examination without abnormal findings Orders: Orders Microalbumin, Random (w Creat) Today I10 - Essential (primary) hypertension UA and rflx microscopic Today Z00.00 - Encounter for general adult medical examination without abnormal findings SIDNEY Reflex Titer and Pattern Today R76.8 - Other specified abnormal immunological findings in serum Rheumatoid Factor Today R76.8 - Other specified abnormal immunological findings in serum Cyclic Citrullinated Peptide Today R76.8 - Other specified abnormal immunological findings in serum Erythrocyte Sedimentation Rate Today R76.8 - Other specified abnormal immunological findings in serum CRP High Sensitivity Today R76.8 - Other specified abnormal immunological findings in serum Comprehensive Spring. Panel Fast Today Z00.00 - Encounter for general adult medical examination without abnormal findings Complete Blood Count Auto Diff Today Z00.00 - Encounter for general adult medical examination without abnormal findings Lipid Panel Today Z00.00 - Encounter for general adult medical examination without abnormal findings TSH reflex Free T4 Today Z00.00 - Encounter for general adult medical examination without abnormal findings Referrals Gastroenterology Referral Z12.11 - Encounter for screening for malignant neoplasm of colon, Z83.719 - Family history of colon polyps, unspecified Rheumatology Referral M25.50 - Pain in unspecified joint Coding Level of Care Code Est Pt Level 4 (25151) Diagnoses Fibromyalgia M79.7 Polyarthralgia M25.50 Rheumatoid factor positive R76.8 Family history of colon polyps, unspecified Z83.719 Laboratory exam ordered as part of routine general medical examination Z00.00
== END 2023-07-14 11:20 | disposition home or self-care (01) ==
PROVIDERS: PCP Family Medicine; Visit Provider Family Medicine
DX: M79.7 Fibromyalgia (principal); M25.50 Pain in unspecified joint; R76.8 Other specified abnormal immunological findings in serum; Z83.719 Family history of colon polyps, unspecified; Z00.00 Encounter for general adult medical examination without abnormal findings
CPT/HCPCS: 99214

== ENCOUNTER 2023-09-09 09:52 | Outpatient (REF) | payer OTHER, SELFPAY ==
[2023-09-09 13:06] LABS: HBS Num1 8.27 mIU/mL (0-7.99); HBc Num1 0.12 S/CO (0.00-0.79); HBsAGNum1 0.39 S/CO (0.00-0.99); Hepatitis A Antibody IgM 0.17 Index (0-0.79); Hepatitis B Core Antibody Nonreactive (Nonreactive); Hepatitis B Surface Antigen Negative (Negative); ~HepC Num1 0.59 S/CO (0.00-0.79); ~Hepatitis A Antibody IgM Nonreactive (Nonreactive); ~Hepatitis C Antibody Nonreactive (Nonreactive)
[2023-09-09 13:08] LABS: Creatinine Urine 314.07 mg/dL; Protein/Creatinine Ratio, Ur 0.05 (<0.2); Total Protein Urine Random 16 mg/dL (<12)
[2023-09-09 13:09] LABS: Creatinine Urine 312.71 mg/dL; Microalbum/Creatinine Ratio Ur 9.2 ug/mg cr (<30)
[2023-09-09 13:28] LABS: Alanine Aminotransferase 13 U/L (0-31); Alkaline Phosphatase 65 U/L (39-117); Anion Gap 10 (12-20); Aspartate Amino Transferase 14 U/L (5-31); Bilirubin Total 0.9 mg/dL (0.0-1.0); Blood Urea Nitrogen 11 mg/dL (9-16); C Reactive Protein 0.34 mg/dL (< or = 0.50); Calcium 9.3 mg/dL (8.4-10.2); Carbon Dioxide 27 mmol/L (22-29); Chloride 106 mmol/L (96-108); Cholesterol 120 mg/dL (<200); Estimated Glomerular Filt Rate > 60; Glucose Fasting 89 mg/dL (60-99); HDL Cholesterol 38 mg/dL (>40); LDL Cholesterol Calculated 66 mg/dL (<100); Potassium 4.3 mmol/L (3.3-5.1); Sodium 139 mmol/L (135-145); TSH reflex Free T4 1.55 uIU/mL (0.32-4.0); Total Protein 7.9 g/dL (6.5-8.0); Triglycerides 81 mg/dL (<150)
[2023-09-09 13:31] LABS: Erythrocyte Sedimentation Rate 14 MM/HR (0-20); Rheumatoid Factor 15.5 IU/mL (<15.0)
[2023-09-09 13:56] LABS: Appearance Urine Clear; Color Urine Dark Yellow; Glucose Urine UA Negative (Negative); Leukocyte Esterase Urine Negative (Negative); Nitrite Urine Negative (Negative); PH 5.5 (5.0-9.0); Specific Gravity - Urine 1.025 (1.005-1.025); Urine Blood Negative (Negative); Urine Ketones Negative (Negative); Urine Protein Negative (Neg-Trace)
[2023-09-09 14:57] LABS: Bacteria Urine None Seen (None Seen); Hyaline Casts Urine 0-2 /LPF (0-2); RBC Urine 0-2 /HPF (0-2); WBC Urine 0-5 /HPF (0-5)
[2023-09-10 08:11] LABS: HBS Num2 8.68 mIU/mL (0-7.99); ~Hepatitis B Surface Antibody GRAYZONE (Nonreactive)
[2023-09-11 10:53] LABS: Complement C3 116 mg/dL (83-193)
[2023-09-11 14:09] LABS: Anti DNA DS Antibody 2 IU/mL; Antibody to SS-A Antigen 2.3 POS AI (<1.0 NEG); Antibody to SS-B Antigen <1.0 NEG AI (<1.0 NEG)
[2023-09-11 20:49] LABS: Cardiolipin IgG Ab <2.0 GPL-U/mL; Cardiolipin IgM Ab <2.0 MPL-U/mL
[2023-09-11 22:23] LABS: Prot Elec - Alpha1 0.3 g/dL (0.2-0.3); Prot Elec - Alpha2 0.6 g/dL (0.5-0.9); Prot Elec - Beta 1 0.6 g/dL (0.4-0.6); Prot Elec - Beta 2 0.6 g/dL (0.2-0.5); Prot Elec - Gamma 1.8 g/dL (0.8-1.7); Prot Elec - Total Protein 7.8 g/dL (6.1-8.1)
[2023-09-12 13:13] LABS: IgA 571 mg/dL (47-310); IgG 1902 mg/dL (600-1640); IgM 69 mg/dL (50-300)
[2023-09-14 13:58] LABS: DNAds, Crithidia Antibody Negative (Negative)
[2023-09-15 22:42] LABS: PTT (LAC) Screen 35 sec (<=40)
[2023-09-16 13:47] LABS: Beta-2 Glycoprotein IgA <2.0 U/mL (<20.0); Beta-2 Glycoprotein IgG <2.0 U/mL (<20.0); Beta-2 Glycoprotein IgM <2.0 U/mL (<20.0)
== END 2023-09-09 09:53 | disposition home or self-care (01) ==
LOC: HO.LAB 09:52
PROVIDERS: Absent Provider Student in an Organized Health Care Education/Training Program; PCP Family Medicine; Visit Provider Family Medicine
DX: Z00.00 Encounter for general adult medical examination without abnormal findings (principal); I10 Essential (primary) hypertension; R76.8 Other specified abnormal immunological findings in serum; M25.50 Pain in unspecified joint; M32.19 Other organ or system involvement in systemic lupus erythematosus; D68.61 Antiphospholipid syndrome; M32.9 Systemic lupus erythematosus, unspecified; Z11.59 Encounter for screening for other viral diseases; Z79.899 Other long term (current) drug therapy
CPT/HCPCS: 36415; 80053; 80061; 81001; 82043; 82570; 82784; 84156; 84165; 84443; 85597; 85598; 85613; 85652; 85730; 86140; 86146; 86147; 86160; 86225; 86235; 86255; 86334; 86431; 86704; 86706; 86709; 86803; 87340; 99212

== ENCOUNTER 2023-09-09 09:56 | Outpatient (AMB) | payer OTHER, SELFPAY ==
[2023-09-09 10:03] VITALS: BP 124/70; PULSE 96; O2SAT 98; BMI 28.9
--- NOTE | 2023-09-09 10:03 | A.OFFVIS_ITS ---
Intake Vital Signs 09/09/23 10:03 Height 5 ft 7 in Weight 184 lb 8.43 oz BMI 28.9 BP 124/70 Blood Pressure Location Rt brachial Position Sitting Pulse 96 Pulse Source Pulse Oximeter Pulse Oximetry (%) 98 Oxygen Delivery Method Room Air Intake Visit Reasons: Joint Pain/CM Intake Note: Patient last seen by Dr Jack on 01/10/21 presents today for polyarthralgia consult at the request of PCP Dr Hsieh. Allergies No Known Allergies Allergy (Verified 09/09/23 10:06) Medication List - Last Reconciled 09/09/23 by Val Barillas MD No Known Home Meds HPI HPI Comments History of Present Illness Details 43-year-old female with SLE returns for follow-up at the request of her PCP. Patient was apparently diagnosed with lupus in 2006 when she was having diffuse joint pains and skin rashes, this was in [place]. She also states that in she had a form of thrombocytopenia and received platelet transfusions. She does not recall any specific treatment for her thrombocytopenia. She states that she feels well overall except for intermittent episodes of swelling of her fingers. She gets itchy skin but no significant rashes. She has not had any fevers, weight loss. She denies any history of DVT/PE. She stated that she was on tramadol, gabapentin, she was also prescribed hydroxychloroquine by Dr. Jack. Stated that these medications made her sleepy. She is not currently taking any medications. Initial history by Dr. Jack SIDNEY 1:640 nuclear/ nucleolar pattern. Low titer positive rheumatoid factor, negative anti CCP antibody. Pt reports a history of diffuse arthralgia that began many years ago. States that her whole body aches. Her pain is generally worse at night. Feels that her hands can be swollen when she first wakes up and she reports stiffness in her hands that can last up to 30 minutes. Her pain is generally worse with activity. Pain is aching in nature, can get up to 8/10. Uses Gabapentin at night which helps her sleep and Ibuprofen during the day as needed. Does not need to take Ibuprofen on daily basis. + dry eyes Patient denies Raynaud's, photosensitivity, oral or nasal ulcers, dry mouth, fevers, alopecia, history of miscarriage. No family history of RA or SLE. [facility] Medical History Rheumatoid factor positive SIDNEY positive Surgical History Hx of tubal ligation H/O oophorectomy Family History Maternal Aunt History of breast cancer Cervical cancer Colon cancer Social History Household Members: Children Housing: Apartment Alcohol intake: current Alcohol intake frequency: holidays/special occasions only Patient Tobacco Use Status: Former Tobacco user e-Cigarette/Vaping Use: Never Used service: No Current occupational status: employed Current occupation: [employer] Sexual orientation: Straight/Heterosexual Gender identity: Female Cognitive needs: No Hearing needs: No Vision needs: Yes (Patient wears glasses) Female Reproductive History Menstrual Age of Menarche: 10 Total pregnancies: 2 Full term: 2 Ab induced: 0 Ab spontaneous: 0 Review of Systems Denies hematuria Musc Reports myalgias, Reports arthralgias and Reports joint swelling Skin/Breast Reports pruritus and Denies lesions Physical Exam Vital Signs: Last Vital Signs Pulse 96 09/09/23 10:03 BP 124/70 09/09/23 10:03 Pulse Ox 98 09/09/23 10:03 Oxygen Delivery Method Room Air 09/09/23 10:03 BMI result Body Mass Index 28.9 Const General: cooperative, healthy appearing and comfortable Nutritional Appearance: overweight HEENT Head: Yes normocephalic and Yes atraumatic Mouth: moist mucous membranes Resp Effort & Inspection: normal respiratory effort and able to speak in complete sentences Auscultation: clear to auscultation bilaterally Cardio Rate: regular rate Rhythm: regular rhythm Skin General skin exam: no rashes or lesions noted Extrem Other: No active synovitis Normal nailfold capillaroscopy Assessment & Plan Assessment & Plan (1) Lupus (systemic lupus erythematosus): Code(s): M32.9 - Systemic lupus erythematosus, unspecified Qualifiers: Systemic lupus erythematosus type: unspecified Systemic lupus erythematosus organ involvement: other Qualified Code(s): M32.19 - Other organ or system involvement in systemic lupus erythematosus Plan: 43-year-old female with SLE returns for follow-up. Patient states that she was diagnosed with lupus in when she was having diffuse pains and rashes. There is also history suspicious for ITP in 1996. Patient has been off her hydroxychloroquine since 2020. Patient has no complaints today. Will check labs to evaluate SLE disease activity. Follow-up in about 4 weeks Plan I spent 30 minutes reviewing patient's chart, evaluating patient, ordering diagnostic workup, counseling patient and documenting in the chart Orders: Orders Cardiolipin Antibodies Today D68.61 - Antiphospholipid syndrome Lupus Anticoagulant Panel Today D68.61 - Antiphospholipid syndrome Complement C3 Today M32.9 - Systemic lupus erythematosus, unspecified Complement C4 Today M32.9 - Systemic lupus erythematosus, unspecified C Reactive Protein Today M32.9 - Systemic lupus erythematosus, unspecified Erythrocyte Sedimentation Rate Today M32.9 - Systemic lupus erythematosus, unspecified DNA Double Stranded-Crithidia Today M32.9 - Systemic lupus erythematosus, unspecified Protein Creatinine Ratio, Ur Today M32.9 - Systemic lupus erythematosus, unspecified Sjogren's Antibodies Today M32.9 - Systemic lupus erythematosus, unspecified UA w Microscopic Today M32.9 - Systemic lupus erythematosus, unspecified Hepatitis A,B,C Profile Today Z11.59 - Encounter for screening for other viral diseases Immunofixation Pnl, Serum Today M32.9 - Systemic lupus erythematosus, unspecified Protein Electrophoresis, Serum Today M32.9 - Systemic lupus erythematosus, unspecified Beta-2 Glycoprotein Antibody Today D68.61 - Antiphospholipid syndrome Anti DNA DS Antibody Today M32.9 - Systemic lupus erythematosus, unspecified Coding Level of Care Code Est Pt Level 4 (15766) Diagnoses Systemic lupus erythematosus with other organ involvement, unspecified SLE type M32.19 Systemic lupus erythematosus type: unspecified Systemic lupus erythematosus organ involvement: other
== END 2023-09-09 10:25 | disposition home or self-care (01) ==
PROVIDERS: PCP Family Medicine; Visit Provider Student in an Organized Health Care Education/Training Program
DX: M32.19 Other organ or system involvement in systemic lupus erythematosus (principal)
CPT/HCPCS: 99214

== ENCOUNTER 2023-09-24 12:09 | Outpatient (AMB) | payer OTHER, SELFPAY ==
[2023-09-24 12:18] VITALS: BP 122/74; PULSE 74; BMI 28.8
--- NOTE | 2023-09-24 12:18 | MHC.OFFVIS ---
Intake Vital Signs 09/24/23 12:18 Height 5 ft 7 in Weight 184 lb BMI 28.8 BP 122/74 Blood Pressure Location Lt brachial Position Sitting Pulse 74 Intake Visit Reasons: Colonoscopy Screening Intake Note: Patient new consult for 1st pre colonoscopy screening. Patient denies any GI issues. 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 Accompanied by: Sister Allergies No Known Allergies Allergy (Verified 09/24/23 12:17) HPI HPI Comments History of Present Illness Details A 43 y/o female SLE referred for index screening colonoscopy-mother has history of colon polyps Maternal grandmother of colon cancer age unknown She has a normal bowel pattern A good appetite No respiratory or cardiac She takes no prescribed medications- No nausea, vomiting, hematemesis, hematochezia fever chills She is here today with her adult sister PFSH Medical History Rheumatoid factor positive SIDNEY positive Surgical History Hx of tubal ligation H/O oophorectomy Family History Maternal Aunt History of breast cancer Cervical cancer Colon cancer Social History (Updated 09/24/23 @ 12:42 by Heaven Escalera PA-C) Household Members: Children Housing: Apartment Alcohol intake: current Alcohol intake frequency: holidays/special occasions only Comment: social Patient Tobacco Use Status: Former Tobacco user e-Cigarette/Vaping Use: Never Used service: No Current occupational status: employed Current occupation: [employer] Sexual orientation: Straight/Heterosexual Gender identity: Female Cognitive needs: No Hearing needs: No Vision needs: Yes (Patient wears glasses) Female Reproductive History Menstrual Age of Menarche: 10 Review of Systems Const All systems reviewed & are unremarkable except as noted in HPI and below GI Denies abdominal pain, Denies hematochezia, Denies change in bowel habits, Denies heartburn, Denies diarrhea, Denies nausea and Denies vomiting Physical Exam Vital Signs: Last Vital Signs Pulse 74 09/24/23 12:18 BP 122/74 09/24/23 12:18 BMI result Body Mass Index 28.8 Const General: cooperative, healthy appearing, comfortable and no acute distress Orientation/consciousness: patient oriented x3 Limitations: no limitations Eyes Sclerae: sclerae normal Resp Effort & Inspection: normal respiratory effort and able to speak in complete sentences Auscultation: clear to auscultation bilaterally, no rales, no rhonchi and no wheezes Cardio Rate: regular rate Rhythm: regular rhythm Heart sounds: S1 normal heart sound present and S2 normal heart sound present GI Palpation (GI): Soft to palpation and nontender Auscultation: normal bowel sounds Neuro General: patient oriented x3 Extrem General: Yes full ROM Psych Appearance: grossly normal and well kempt Mental Status: mental status grossly normal Speech and movement: Normal speech and movement present and Clear speech present Affect: normal affect Attitude: cooperative Thought process: Normal thought process present Thought content: Normal thought content present Insight: Good insight present (Psych) Judgement: Good judgement present (Psych) Assessment & Plan Assessment & Plan (1) Family history of colon polyps, unspecified: Comment: mother Code(s): Z83.719 - Family history of colon polyps, unspecified (2) Family history of colon cancer: Comment: Mat- GM age unknown Code(s): Z80.0 - Family history of malignant neoplasm of digestive organs Plan Index screening colon MG prep Orders: Orders Colonoscopy - GI Use Only Today Z12.11 - Encounter for screening for malignant neoplasm of colon Medications: New bisacodyl (Dulcolax (bisacodyl)) Day before procedure @ 12 noon Take 4 tablets by mouth followed by large glass of water 20 mg (4 x 5 mg) PO ONCE PRN 4 tabs 0RF colonoscopy prep 1 day Z12.11 - Encounter for screening for malignant neoplasm of colon polyethylene glycol 3350 (Miralax) Take as directed by mouth the day before your procedure. 238 grams PO ONCE PRN 238 grams 0RF laxative effect 1 day Patient Instructions: 43-year-old female SLE family history of colon cancer, colon polyps and colon cancer. She takes no medication no GI complaints Discussed procedure, rare risks need for escorted due to anesthesia MiraLax Gatorade prep, reviewed literature Encouraged to call questions or concerns any change in health status or medication Coding Level of Care Code New Pt Level 3 (31866) Diagnoses Family history of colon polyps, unspecified Z83.719 Family history of colon cancer Z80.0 Time Spent (min) 30
== END 2023-09-24 13:34 | disposition home or self-care (01) ==
PROVIDERS: PCP Family Medicine; Visit Provider Physician Assistant
DX: Z83.719 Family history of colon polyps, unspecified (principal); Z80.0 Family history of malignant neoplasm of digestive organs
CPT/HCPCS: 99203

== ENCOUNTER → 2023-09-24 12:09 | Outpatient (BNVA) | payer OTHER, SELFPAY | PROVIDERS: PCP Family Medicine; Visit Provider Physician Assistant | DX: Z83.719 Family history of colon polyps, unspecified (principal); Z80.0 Family history of malignant neoplasm of digestive organs | CPT/HCPCS: 99202 ==

== ENCOUNTER 2023-10-08 11:43 | Outpatient (AMB) | payer OTHER, SELFPAY ==
[2023-10-08 11:44] VITALS: BP 118/82; PULSE 77; O2SAT 99; BMI 29.8
--- NOTE | 2023-10-08 11:44 | MHC.OFFVIS ---
Vital Signs 10/08/23 11:44 Height 5 ft 7 in Weight 190 lb 0.615 oz BMI 29.8 BP 118/82 Blood Pressure Location Rt brachial Position Sitting Pulse 77 Pulse Source Pulse Oximeter Pulse Oximetry (%) 99 Oxygen Delivery Method Room Air Intake Visit Reasons: 1-mo Follow up Lupus, SLE Allergies No Known Allergies Allergy (Verified 09/24/23 12:17) Medication List - Last Reconciled 10/08/23 by Val Barillas MD No Known Home Meds HPI Comments Details: 43-year-old female with SLE returns for follow-up after completion of her diagnostic workup. She states that she feels generally well but continues to have intermittent joint pain and swelling. Initial history by me 08/2023: 43-year-old female with SLE returns for follow-up at the request of her PCP. Patient was apparently diagnosed with lupus in 2006 when she was having diffuse joint pains and skin rashes, this was in [place]. She also states that in she had a form of thrombocytopenia and received platelet transfusions. She does not recall any specific treatment for her thrombocytopenia. She states that she feels well overall except for intermittent episodes of swelling of her fingers. She gets itchy skin but no significant rashes. She has not had any fevers, weight loss. She denies any history of DVT/PE. She stated that she was on tramadol, gabapentin, she was also prescribed hydroxychloroquine by Dr. Jack. Stated that these medications made her sleepy. She is not currently taking any medications. Initial history by Dr. Jack SIDNEY 1:640 nuclear/ nucleolar pattern. Low titer positive rheumatoid factor, negative anti CCP antibody. Pt reports a history of diffuse arthralgia that began many years ago. States that her whole body aches. Her pain is generally worse at night. Feels that her hands can be swollen when she first wakes up and she reports stiffness in her hands that can last up to 30 minutes. Her pain is generally worse with activity. Pain is aching in nature, can get up to 8/10. Uses Gabapentin at night which helps her sleep and Ibuprofen during the day as needed. Does not need to take Ibuprofen on daily basis. + dry eyes Patient denies Raynaud's, photosensitivity, oral or nasal ulcers, dry mouth, fevers, alopecia, history of miscarriage. No family history of RA or SLE. [facility] Surgical History Hx of tubal ligation H/O oophorectomy Family History Maternal Aunt History of breast cancer Cervical cancer Colon cancer Social History Household Members: Children Housing: Apartment Alcohol intake: current Alcohol intake frequency: holidays/special occasions only Comment: social Patient Tobacco Use Status: Former Tobacco user e-Cigarette/Vaping Use: Never Used service: No Current occupational status: employed Current occupation: [employer] Sexual orientation: Straight/Heterosexual Gender identity: Female Cognitive needs: No Hearing needs: No Vision needs: Yes (Patient wears glasses) Female Reproductive History Menstrual Age of Menarche: 10 Total pregnancies: 2 Review of Systems Musc Reports myalgias, Reports arthralgias and Reports joint swelling Physical Exam Vital Signs: Last Vital Signs Pulse 77 10/08/23 11:44 BP 118/82 10/08/23 11:44 Pulse Ox 99 10/08/23 11:44 Oxygen Delivery Method Room Air 10/08/23 11:44 BMI result Body Mass Index 29.8 Const General: cooperative, healthy appearing and comfortable Nutritional Appearance: overweight HEENT Head: Yes normocephalic and Yes atraumatic Mouth: moist mucous membranes Resp Effort & Inspection: normal respiratory effort and able to speak in complete sentences Auscultation: clear to auscultation bilaterally Cardio Rate: regular rate Rhythm: regular rhythm Skin General skin exam: no rashes or lesions noted Extrem Other: No active synovitis Normal nailfold capillaroscopy Assessment & Plan Assessment & Plan (1) SLE (systemic lupus erythematosus): Comment: dx lupus in (arthralgias, rashes +SIDNEY, +RF +SSa, low C3 & C4, There is also history suspicious for ITP in 1996 HCQ Code(s): M32.9 - Systemic lupus erythematosus, unspecified Category: Medical Plan: This is a 43-year-old female with SLE who presents for follow-up after completion of her diagnostic workup. Unfortunately a CBC was not drawn. Patient states that she has been doing well overall with no new complaints except for intermittent joint pain and swelling. Start hydroxychloroquine 200 mg Twice daily Check a CBC today and SLE activity labs before next visit in 3 months (2) Long-term use of hydroxychloroquine: Code(s): Z79.899 - Other certified orthotist practice manager (current) drug therapy Category: Medical Plan: Discussed risk of retinopathy associated with hydroxychloroquine. 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 Plan I spent 24 minutes reviewing patient's chart, evaluating patient, ordering diagnostic workup, counseling patient and documenting in the chart Orders: Orders Complete Blood Count Auto Diff Today M32.9 - Systemic lupus erythematosus, unspecified Complement C3 3 Months M32.9 - Systemic lupus erythematosus, unspecified Complement C4 3 Months M32.9 - Systemic lupus erythematosus, unspecified Erythrocyte Sedimentation Rate 3 Months M32.9 - Systemic lupus erythematosus, unspecified Protein Creatinine Ratio, Ur 3 Months M32.9 - Systemic lupus erythematosus, unspecified Complete Blood Count Auto Diff 3 Months M32.9 - Systemic lupus erythematosus, unspecified Comprehensive Met. Panel 3 Months M32.9 - Systemic lupus erythematosus, unspecified Anti DNA DS Antibody 3 Months M32.9 - Systemic lupus erythematosus, unspecified UA w Microscopic 3 Months M32.9 - Systemic lupus erythematosus, unspecified Medications: New hydroxychloroquine 200 mg PO BID 180 tabs 1RF Coding Level of Care Code Est Pt Level 4 (64384) Diagnoses SLE (systemic lupus erythematosus) M32.9 Long-term use of hydroxychloroquine Z79.899
== END 2023-10-08 12:17 | disposition home or self-care (01) ==
LOC: HO.RHE 11:43
PROVIDERS: PCP Family Medicine; Visit Provider Student in an Organized Health Care Education/Training Program
DX: M32.9 Systemic lupus erythematosus, unspecified (principal); Z79.899 Other long term (current) drug therapy
CPT/HCPCS: 99214

== ENCOUNTER → 2023-10-08 11:43 | Outpatient (BNVA) | payer OTHER, SELFPAY | PROVIDERS: PCP Family Medicine; Visit Provider Student in an Organized Health Care Education/Training Program | DX: M32.9 Systemic lupus erythematosus, unspecified (principal); Z79.899 Other long term (current) drug therapy | CPT/HCPCS: 99212 ==

== ENCOUNTER 2023-10-08 12:26 | Outpatient (REF) | payer OTHER, SELFPAY ==
[2023-10-08 13:17] LABS: MANUAL DIFF FLAG NO
[2023-10-08 13:55] LABS: Basophils Percent Auto 0.4 % (0-2); Eosinophils Absolute Auto 0.1 X10*3/uL (0.0-0.4); Eosinophils Percent Auto 1.1 % (0-4); Hematocrit 36.1 % (37.0-47.0); Hemoglobin 12.1 g/dl (12.0-16.0); Imm Gran Abs Auto 0.02 X10*3/uL (0.00-0.03); Imm Gran Pct Auto 0.4 % (0.0-0.4); Lymphocytes Absolute Auto 1.7 X10*3/uL (1.2-4.9); Lymphocytes Percent Auto 32.8 % (20-40); Mean Corpuscular HGB Conc 33.5 g/dl (31.0-35.0); Mean Corpuscular Hemoglobin 27.8 pg (27.0-33.0); Mean Platelet Volume 11.6 fL (9.4-12.3); Monocytes Absolute Auto 0.3 X10*3/uL (0.1-1.2); Monocytes Percent Auto 5.1 % (2-11); Neutrophils Absolute Auto 3.2 x10*3/uL (2.0-8.3); Neutrophils Percent Auto 60.2 % (45-73); Platelet Count 251 X10*3/uL (160-400); Red Blood Count 4.35 X10*6/uL (4.20-5.50); Red Cell Distribution Width 12.9 % (11.0-16.0); White Blood Count 5.3 X10*3/uL (4.8-10.8)
== END 2023-10-08 12:27 | disposition home or self-care (01) ==
LOC: HO.10HDL 12:26
PROVIDERS: Visit Provider Student in an Organized Health Care Education/Training Program
DX: M32.9 Systemic lupus erythematosus, unspecified (principal)
CPT/HCPCS: 36415; 85025

== ENCOUNTER 2023-11-04 12:02 | Outpatient (AMB) | payer OTHER, SELFPAY ==
[2023-11-04 12:08] VITALS: BP 116/62; PULSE 72; O2SAT 99; BMI 29.4
--- NOTE | 2023-11-04 12:08 | MHC.PC.OV ---
Vital Signs 11/04/23 12:08 Height 5 ft 7 in Weight 188 lb BMI 29.4 BP 116/62 Blood Pressure Location Lt brachial Position Sitting Pulse 72 Pulse Source Pulse Oximeter Pulse Oximetry (%) 99 Oxygen Delivery Method Room Air Intake Visit Reasons: CPE W/ f/u labs +health maint. see comments Intake Note: Patient is here for physical today, and follow up on labs with health maintenance. Allergies No Known Allergies Allergy (Verified 11/04/23 12:10) Medication List - Last Reconciled 11/04/23 by Scot Hsieh MD hydroxychloroquine 200 mg PO BID Tobacco use date assessed: 11/04/23 Dental Screening Dental Screen Date: 07/14/23 HPI CPE W/ f/u labs +health maint. see comments HPI Details 43 y/o female presents for an extended exam with f/u labs and health maintenance. Labs were drawn 09/09/23. Reviewed labs with pt. Reviewed labs with pt. Triglycerides 81. TC 120. LDL 66. HDL low at 38. PFSH Surgical History Hx of tubal ligation H/O oophorectomy Family History Maternal Aunt History of breast cancer Cervical cancer Colon cancer Social History Household Members: Children Housing: Apartment Alcohol intake: current Alcohol intake frequency: holidays/special occasions only Comment: social Patient Tobacco Use Status: Former Tobacco user e-Cigarette/Vaping Use: Never Used service: No Current occupational status: employed Current occupation: [employer] Sexual orientation: Straight/Heterosexual Gender identity: Female Cognitive needs: No Hearing needs: No Vision needs: Yes (Patient wears glasses) Female Reproductive History Menstrual Age of Menarche: 10 Questionnaire Thrive Questionnaire Date Thrive assessed: 07/14/23 MIKAELA-7 AMB Questionnaire MIKAELA-7 Date MIKAELA - 7 assessed: 07/14/23 Source: Developed by Drs. Jason Perez, Ethel Norton, Jonatan Escamilla and colleagues, with an educational lisa from [employer]. Review of Systems Const Denies chills, Denies fatigue, Denies fever(s), Denies headache(s) and Denies weakness Eyes Denies change in vision ENT Denies dizziness, Denies headache(s), Denies hearing loss, Denies nasal congestion, Denies sinus pain, Denies sinus pressure and Denies sore throat Card Denies chest pain, Denies lightheadedness, Denies dyspnea and Denies other (palpitations) Resp Denies cough, Denies dyspnea and Denies wheezing GI Denies abdominal pain, Denies melena, Denies hematochezia, Denies change in bowel habits, Denies dyspepsia and Denies nausea Denies hematuria and Denies dysuria Musc Denies abnormal gait, Denies myalgias, Denies arthralgias, Denies numbness and Denies tingling Skin/Breast Denies rash, Denies unusual bruising and Denies wounds Neuro Denies abnormal gait, Denies dizziness, Denies headache(s), Denies memory loss, Denies numbness, Denies Sensory deficit (Neuro), Denies tingling and Denies weakness Psych Denies anxiety, Denies depression and Denies memory loss Endo Denies cold intolerance, Denies fatigue, Denies heat intolerance, Denies polydipsia and Denies polyuria Khris/Lymph Denies easy bleeding and Denies easy bruising Aller/Immun Denies wheezing Physical exam (Primary Care) Vital Signs: Last Vital Signs Pulse 72 11/04/23 12:08 BP 116/62 11/04/23 12:08 Pulse Ox 99 11/04/23 12:08 Oxygen Delivery Method Room Air 11/04/23 12:08 BMI result Body Mass Index 29.4 Tobacco/Smoking Status: Tobacco use Status Tobacco use date assessed 11/04/23 11/04/23 12:11 Patient Tobacco Use Status Former Tobacco user 11/04/23 12:11 e-Cigarette/Vaping Use Never Used 11/04/23 12:11 Thrive Assessment: Date of Thrive Assessment Date Thrive assessed 07/14/23 11/04/23 12:11 Const General: no acute distress, well developed, alert and awake Nutritional Appearance: well nourished Orientation/consciousness: patient oriented x3 HENMT Head: Yes normocephalic and Yes atraumatic Ears: hearing grossly normal bilaterally and TM's normal bilaterally General nose exam: Normal external nose present and Normal nares present Mouth: Normal oral and palatal mucosa present and moist mucous membranes Teeth and gingiva: dentition normal Throat: Yes posterior oropharynx normal Eyes General: appearance normal, both eyes and all related structures Pupils: Equal, round and reactive pupils present and Pupil accommodation reflex normal EOM: EOMs intact bilaterally Neck Neck: Yes normal visual inspection, Yes no lymphadenopathy and Yes trachea midline Thyroid: Thyroid normal Carotids: no bruits Lymphatic: no lymphadenopathy noted Chest Chest palpation & inspection: normal inspection of the chest Resp Effort & Inspection: normal respiratory effort Auscultation: clear to auscultation bilaterally Cardio Rate: regular rate Rhythm: regular rhythm Heart sounds: S1 normal heart sound present, S2 normal heart sound present, no gallops, no murmurs and no rubs Bruits: no abdominal aortic bruits and no carotid bruits GI Palpation (GI): No Abdominal aortic bruit present, Soft to palpation, nontender, No hepatosplenomegaly present and No Rebound tenderness present Auscultation: normal bowel sounds General: Yes no CVA tenderness Back/Spine/Pelvis Back: no CVA tenderness Cervical Spine: cervical ROM normal and No Cervical spine tenderness Thoracic/Lumbar Spine: thoraco-lumbar ROM normal, No pain with thoraco-lumbar ROM, No thoracic spinal tenderness and No lumbar spinal tenderness Skin Lesions: no lesions Rashes: no rashes Trauma: no lacerations or abrasions Wounds: no wounds Nails: normal Neuro General: patient oriented x3 Cranial nerves: Yes Equal, round and reactive pupils present Cognition (Neuro): normal cognition Gait exam (Neuro): Normal gait present Motor exam (neuro): 5/5 motor strength present throughout Sensory Exam: No Sensory deficit (Neuro) Deep tendon reflexes (DTR's): Right patellar reflex intensity grade: 2+ and Left patellar reflex intensity grade: 2+ Extrem General: Yes normal to inspection and No edema Psych Appearance: grossly normal Affect: normal affect Attitude: cooperative Thought process: Normal thought process present Assessment and Plan Assessment & Plan (1) Fibromyalgia: Code(s): M79.7 - Fibromyalgia Plan: Chronic?joint?pain?and?myalgias?and?also?history?of?lupus. Advised?regular?exercise?and?she?can?work?on?intensity?when?lupus?is?better?treated. (2) Polyarthralgia: Code(s): M25.50 - Pain in unspecified joint Plan: As?above,?fibromyalgia?and?lupus Recently?started?hydroxychloroquine Continue?current?medication?and?follow-up?with?Rheumatology?regarding?lupus Work?at?regular?exercise?and?adjust?intensity?once?good?routine?is?establish (3) Screening for colon cancer: Code(s): Z12.11 - Encounter for screening for malignant neoplasm of colon Plan: She?has?an?appointment?for?colonoscopy?in?January (4) Breast cancer screening by mammogram: Code(s): Z12.31 - Encounter for screening mammogram for malignant neoplasm of breast Plan: Missed?her?appointment?for?mammogram. Ordered?again?and?she?will?get?this?scheduled (5) Adult general medical examination: Code(s): Z00.00 - Encounter for general adult medical examination without abnormal findings Plan: 43-year-old?female?presents?for?an?extended?exam Encouraged?healthy?diet?and?exercise (6) Low HDL (under 40): Code(s): E78.6 - Lipoprotein deficiency Plan: Mildly?low?HDL?in?patient?with?fibromyalgia?and?lupus, having?difficulty?getting?exercise?due?to?discomfort. As?above?she?will?work?on?regularity?of?exercise?and?she?can?adjust?her?intensity?later We?can?follow-up?on?lipids?and?other?chronic?conditions?at?her?next?visit Orders: Orders MM tomosynthesis screening BI Today Z12.31 - Encounter for screening mammogram for malignant neoplasm of breast Lipid Panel Today E78.6 - Lipoprotein deficiency, Z00.00 - Encounter for general adult medical examination without abnormal findings Coding Level of Care Code Est Pt Level 4 (83360) Diagnoses Fibromyalgia M79.7 Polyarthralgia M25.50 Screening for colon cancer Z12.11 Breast cancer screening by mammogram Z12.31 Adult general medical examination Z00.00 Low HDL (under 40) E78.6
== END 2023-11-04 12:33 | disposition home or self-care (01) ==
PROVIDERS: PCP Family Medicine; Visit Provider Family Medicine
DX: Z00.00 Encounter for general adult medical examination without abnormal findings (principal); M79.7 Fibromyalgia; M25.50 Pain in unspecified joint; Z12.11 Encounter for screening for malignant neoplasm of colon; Z12.31 Encounter for screening mammogram for malignant neoplasm of breast; E78.6 Lipoprotein deficiency
CPT/HCPCS: 99396

== ENCOUNTER → 2023-11-14 13:00 | Outpatient (BNV) | payer OTHER, SELFPAY | PROVIDERS: PCP Family Medicine; Visit Provider Radiology Diagnostic Radiology | DX: Z12.31 Encounter for screening mammogram for malignant neoplasm of breast (principal) | CPT/HCPCS: 77063; 77067 ==

== ENCOUNTER 2023-11-14 13:07 | Outpatient (REF) | payer OTHER, SELFPAY | END 2023-11-14 13:08 | disposition home or self-care (01) | LOC: HO.MAMMO 13:07 | PROVIDERS: PCP Family Medicine; Visit Provider Family Medicine | DX: Z12.31 Encounter for screening mammogram for malignant neoplasm of breast (principal) | CPT/HCPCS: 77063; 77067 ==

== ENCOUNTER 2024-02-10 06:55 | Day surgery (SDC) | payer OTHER, SELFPAY ==
[2024-02-09 06:57] VITALS: BMI 29.4
[2024-02-10 07:21] VITALS: BMI 28.7
[2024-02-10 07:27] VITALS: BP 128/80; PULSE 111; RESP 16; TEMP 37.4; O2SAT 96
--- NOTE | 2024-02-10 07:30 | P.CONAN_ITS ---
[facility] Active Problems Active Problems: All Active Problems Low HDL (under 40) (Acute) Breast cancer screening by mammogram (Acute) Screening for colon cancer (Acute) Adult general medical examination (Acute) Long-term use of hydroxychloroquine (Acute) SLE (systemic lupus erythematosus) (Acute) Family history of colon cancer (Acute) Family history of colon polyps, unspecified (Acute) Laboratory exam ordered as part of routine general medical examination (Acute) Abnormal mammogram (Acute) Fibromyalgia (Acute) Bilateral rotator cuff syndrome (Acute) Encounter for annual routine gynecological examination (Acute) Vitamin D deficiency (Acute) Polyarthralgia (Acute) Family History Family History Maternal Aunt History of breast cancer Cervical cancer Colon cancer Surgical History Surgical History Hx of tubal ligation H/O oophorectomy History of Problems with Anesthesia: No Social History Social History Household Members: Children Housing: Apartment 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 If so, by whom?: No Are you DNR?: No Advance Directives: No Advance Directives Information Provided: Yes Recently lost weight without trying: No How much weight loss: Not applicable Eating poorly because of decreased appetite: No Nutrition screen score: 0 Nutrition Risks: No Nutritional Risk Patient : No : No Poor oral hygiene: Yes (upper partial) service: No Current occupational status: employed Current occupation: [employer] Sexual orientation: Straight/Heterosexual Gender identity: Female Cognitive needs: No Hearing needs: No Vision needs: Yes (Patient wears glasses) Meds Allergies Allergy/AdvReac Type Severity Reaction Status Date / Time No Known Allergies Allergy Verified 02/10/24 07:17 Active Medications: Current Medications Lactated Ringer's (Lr) 1,000 mls @ 80 mls/hr IVCONT .[id number] JUAN Exam Height,Weight and Vital Signs: Height 5 ft 7 in Weight 83.189 kg Airway Mallampati Class: II TM Dist: >3cm Neck ROM: Full Loose/Missing/Broken Teeth: No Heart: RRR Lungs: CTA Assessment and Plan Assessment Anesthesia Assessment: Anesthesia Plan Discussed, Smoking Cess. Discussed, PAT Visit and Chart Reviewed Final Anesthetic Review History of Problems with Anesthesia: No NPO: Yes ASA Class: II Final Preanesthetic Review: Meds/Allgs Chart Reviewed, Consent Obtained/Reviewed and Anes Risks/Benef Reviewed Patient Risk: Low Procedure Risk: Low Anesthetic Plan Anesthetic Plan: MAC: Disposition: Standard PACU
[2024-02-10] MEDS: Lactated Ringers 1,000 ML 80 ML IVCONT (07:45)
--- NOTE | 2024-02-10 08:06 | MHC.SHP ---
Pre-Procedural Eval Section A - 24 Hr Update-Section A only Date of Service: 02/10/24 Section B - Complete if H&P > 30 days Chief Complaint: hx colon polyps,hx malignant neoplasm Details of Present Illness: aunt with crc Relevant Family History (Specify if Yes): Yes Relevant Social History: None Present Medications: see Short Stay Collaborative assessment Medical History: Significant History (Rheumatoid factor positive SIDNEY positive, SLE) History of Previous Operations: Relevant previous surgery/procedure and date(s) (Hx of tubal ligation H/O oophorectomy) Allergies: Allergies Allergy/AdvReac Type Severity Reaction Status Date / Time No Known Allergies Allergy Verified 02/10/24 07:17 Review of Systems Sugical H&P ROS: Negative: Constitution, Cardiovascular, Respiratory, Neurological, Psychiatric, Hem-Onc, Allergic/Immunologic, Gastrointestinal, Genitourinary, Musculoskeletal, Integumentary, Endocrine and Eyes/Ears/Nose/Throat Exam Surgical H&P Exam: Normal: HEENT, Normal: Heart, Normal: Lungs, Normal: Extremities, Normal: Abdomen, Normal: Skin and Normal: Neurological Plan Diagnosis/Plan: Unchanged I have reviewed the history and physical and performed a pertinent physical examination on my patient. No changes have occurred unless specified. Time Spent With Patient Time: Total time managing care of this patient today ____ minutes.
--- NOTE | 2024-02-10 08:15 | P.OP_ITS ---
Operative Note Operative Note Date of Service: 02/10/24 Narrative: Operative Information Procedure Description: Colonoscopy Indication: screening Anesthesia: MAC COLONOSCOPY Instrument: Olympus variable stiffness pediatric scope 190L Colonoscopy Monitoring: Vital signs and clinical assessment, continuous EKG monitoring, Pulse oximetry, Carbon Dioxide monitoring and blood pressure monitoring were done throughout the procedure. Colon withdrawal time was 10 minutes. Procedure: The patient was placed in the left lateral decubitis position and pre-procedure medications were administered. After a digital rectal examination of the ano-rectum, the video colonoscope was inserted into the rectum and advanced through the colon to the cecum/TI. The colonoscope was slowly withdrawn in a retrograde panoramic fashion and the colon mucosa was carefully examined including a retroflexed view of the rectum. Findings and interventions are described below. Procedure Difficulty: easy Findings: Terminal Ileum-normal Cecum:normal right sided retroflexion- normal Ascending Colon: normal Transverse Colon - 6-8 mm sessile polyp removed with cold forceps Descending Colon:normal Sigmoid Colon: normal Rectum: Retroflexion with small internal hemorrhoids seen, grade I Anorectum - normal Intervention: cold forceps Colon preparation: Hollister Bowel Preparation Scale Right colon; 2 Transverse colon: 2 Left colon; 2 (0 = Unprepared colon segment with mucosa not seen due to solid stool that cannot be cleared. 1 = Portion of mucosa of the colon segment seen, but other areas of the colon segment not well seen due to staining, residual stool and/or opaque liquid. 2 = Minor amount of residual staining, small fragments of stool and/or opaque liquid, but mucosa of colon segment seen well. 3 = Entire mucosa of colon segment seen well with no residual staining, small fragments of stool or opaque liquid) Impression and Post Procedure Diagnosis: colon polyp internal hemorrhoids Plan: High fiber diet leaflet Avoid straining at stool, epsom salts and sitz bath, anusol supps or cream Repeat Colonoscopy in 5-7 years if adenomatous polyp, 10 yrs if benign or earlier if clinically indicated Above findings were reviewed with the patient and relevant handouts were provided if indicated.
[2024-02-10 08:35] VITALS: BP 112/69; PULSE 94; RESP 18; TEMP 36.7; O2SAT 97
[2024-02-10 08:50] VITALS: BP 121/69; PULSE 91; RESP 18; TEMP 36.7; O2SAT 98
== END 2024-02-10 10:00 | disposition home or self-care (01) ==
PROVIDERS: PCP Family Medicine; Visit Provider Internal Medicine Gastroenterology
PROC: 0DJD8ZZ Inspection of Lower Intestinal Tract, Via Natural or Artificial Opening Endoscopic (ICD-10-PCS; CPT 45378; principal; 2024-02-10 08:10)
DX: Z12.11 Encounter for screening for malignant neoplasm of colon (principal); Z83.719 Family history of colon polyps, unspecified; D12.3 Benign neoplasm of transverse colon; K64.0 First degree hemorrhoids; M32.9 Systemic lupus erythematosus, unspecified; M79.7 Fibromyalgia; Z79.899 Other long term (current) drug therapy; Z98.51 Tubal ligation status; Z87.891 Personal history of nicotine dependence
CPT/HCPCS: 45380; 88305; J2704

== ENCOUNTER → 2024-02-10 06:55 | Outpatient (BNV) | payer OTHER, SELFPAY | PROVIDERS: PCP Family Medicine; Visit Provider Internal Medicine Gastroenterology | DX: Z12.11 Encounter for screening for malignant neoplasm of colon (principal); K63.5 Polyp of colon; K64.8 Other hemorrhoids | CPT/HCPCS: 45380 ==

== ENCOUNTER 2024-03-08 10:38 | Outpatient (REF) | payer OTHER, SELFPAY ==
[2024-03-08 10:54] LABS: MANUAL DIFF FLAG NO
[2024-03-08 11:44] LABS: Basophils Percent Auto 0.4 % (0-2); Eosinophils Absolute Auto 0.1 X10*3/uL (0.0-0.4); Eosinophils Percent Auto 2.5 % (0-4); Hemoglobin 12.9 g/dl (12.0-16.0); Imm Gran Abs Auto 0.02 X10*3/uL (0.00-0.03); Imm Gran Pct Auto 0.4 % (0.0-0.4); Lymphocytes Absolute Auto 1.5 X10*3/uL (1.2-4.9); Lymphocytes Percent Auto 30.2 % (20-40); Mean Corpuscular HGB Conc 33.1 g/dl (31.0-35.0); Mean Corpuscular Hemoglobin 28.1 pg (27.0-33.0); Mean Platelet Volume 12.1 fL (9.4-12.3); Monocytes Absolute Auto 0.2 X10*3/uL (0.1-1.2); Monocytes Percent Auto 4.1 % (2-11); Neutrophils Absolute Auto 3.2 x10*3/uL (2.0-8.3); Neutrophils Percent Auto 62.4 % (45-73); Platelet Count 203 X10*3/uL (160-400); Red Blood Count 4.59 X10*6/uL (4.20-5.50); Red Cell Distribution Width 13.1 % (11.0-16.0); White Blood Count 5.1 X10*3/uL (4.8-10.8)
[2024-03-08 12:00] LABS: Appearance Urine Clear; Color Urine Yellow; Glucose Urine UA Negative (Negative); Leukocyte Esterase Urine Trace (Negative); Nitrite Urine Negative (Negative); PH 5.5 (5.0-9.0); UMIC TRIGGER UA YES; Urine Blood Moderate (2+) (Negative); Urine Ketones Negative (Negative); Urine Protein Negative (Neg-Trace)
[2024-03-08 12:31] LABS: Erythrocyte Sedimentation Rate 11 MM/HR (0-20)
[2024-03-08 12:33] LABS: Creatinine Urine 151.84 mg/dL; Total Protein Urine Random < 7 mg/dL (<12)
[2024-03-08 12:35] LABS: Alanine Aminotransferase 12 U/L (0-31); Albumin Level 4.2 g/dL (3.5-5.0); Alkaline Phosphatase 53 U/L (39-117); Anion Gap 9 (12-20); Aspartate Amino Transferase 13 U/L (5-31); Bilirubin Total 0.7 mg/dL (0.0-1.0); Blood Urea Nitrogen 10 mg/dL (9-16); Calcium 9.1 mg/dL (8.4-10.2); Carbon Dioxide 27 mmol/L (22-29); Chloride 108 mmol/L (96-108); Estimated Glomerular Filt Rate > 60; Glucose Random 95 mg/dL (60-115); Potassium 4.1 mmol/L (3.3-5.1); Sodium 140 mmol/L (135-145); Total Protein 7.9 g/dL (6.5-8.0)
[2024-03-08 12:59] LABS: Bacteria Urine Trace (None Seen); Hyaline Casts Urine 0-2 /LPF (0-2); WBC Urine 0-5 /HPF (0-5)
[2024-03-09 14:13] LABS: Anti DNA DS Antibody 1 IU/mL
[2024-03-10 00:49] LABS: Complement C3 122 mg/dL (83-193)
== END 2024-03-08 10:39 | disposition home or self-care (01) ==
LOC: HO.LAB 10:38
PROVIDERS: PCP Family Medicine; Visit Provider Student in an Organized Health Care Education/Training Program
DX: M32.9 Systemic lupus erythematosus, unspecified (principal)
CPT/HCPCS: 36415; 80053; 81001; 82570; 84156; 85025; 85652; 86160; 86225

== ENCOUNTER 2024-03-17 08:30 | Outpatient (AMB) | payer OTHER, SELFPAY ==
--- NOTE | 2024-03-17 08:32 | A.OFFVIS_ITS ---
Vital Signs 03/17/24 08:35 Height 5 ft 7 in Weight 187 lb 6.287 oz BMI 29.3 BP 124/80 Blood Pressure Location Rt brachial Position Sitting Pulse 85 Pulse Source Pulse Oximeter Pulse Oximetry (%) 97 Oxygen Delivery Method Room Air Intake Visit Reasons: SLE Intake Note: Patient presents for SLE. Allergies No Known Allergies Allergy (Verified 03/17/24 08:34) Medication List - Last Reconciled 03/17/24 by Val Barillas MD hydroxychloroquine 200 mg PO BID HPI Comments Details: 44-year-old female with SLE returns for follow-up. She has been compliant with hydroxychloroquine 20 mg Twice daily. She states that she is doing well overall. She gets intermittent pains in her elbows and knees. 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 The pain occurs about twice a week and lasts about half a day. She does not take any medications for it. Does not notice any joint swelling. She denies any skin rashes, fevers, unintentional weight loss . Initial history by me 08/2023: 43-year-old female with SLE returns for follow-up at the request of her PCP. Patient was apparently diagnosed with lupus in 2006 when she was having diffuse joint pains and skin rashes, this was in [place]. She also states that in she had a form of thrombocytopenia and received platelet transfusions. She does not recall any specific treatment for her thrombocytopenia. She states that she feels well overall except for inte rmittent episodes of swelling of her fingers. She gets itchy skin but no significant rashes. She has not had any fevers, weight loss. She denies any history of DVT/PE. She stated that she was on tramadol, gabapentin, she was also prescribed hydroxychloroquine by Dr. Jack. Stated that these medications made her sleepy. She is not currently taking any medications. Initial history by Dr. Jack SIDNEY 1:640 nuclear/ nucleolar pattern. Low titer positive rheumatoid factor, negative anti CCP antibody. Pt reports a history of diffuse arthralgia that began many years ago. States that her whole body aches. Her pain is generally worse at night. Feels that her hands can be swollen when she first wakes up and she reports stiffness in her hands that can last up to 30 minutes. Her pain is generally worse with activity. Pain is aching in nature, can get up to 8/10. Uses Gabapentin at night which helps her sleep and Ibuprofen during the day as needed. Does not need to take Ibuprofen on daily basis. + dry eyes Patient denies Raynaud's, photosensitivity, oral or nasal ulcers, dry mouth, fevers, alopecia, history of miscarriage. No family history of RA or SLE. PFSH Surgical History Hx of tubal ligation H/O oophorectomy Family History Maternal Aunt History of breast cancer Cervical cancer Colon cancer Social History Household Members: Children Housing: Apartment Are you a primary home health care worker to a significant other at home: Yes Do you presently have visiting nurse or other home services: No Alcohol intake: current Alcohol intake frequency: does not drink Comment: social Patient Tobacco Use Status: Former Tobacco user Tobacco use type: Cigarette Years Smoked: 10 e-Cigarette/Vaping Use: Never Used service: No Current occupational status: employed Current occupation: [employer] Sexual orientation: Straight/Heterosexual Gender identity: Female Cognitive needs: No Hearing needs: No Vision needs: Yes (Patient wears glasses) Female Reproductive History Menstrual Age of Menarche: 10 Review of Systems Musc Reports arthralgias and Denies joint swelling Physical Exam Vital Signs: Last Vital Signs Pulse 85 03/17/24 08:35 BP 124/80 03/17/24 08:35 Pulse Ox 97 03/17/24 08:35 Oxygen Delivery Method Room Air 03/17/24 08:35 BMI result Body Mass Index 29.3 Const General: cooperative, healthy appearing and comfortable Nutritional Appearance: overweight HEENT Head: Yes normocephalic and Yes atraumatic Mouth: moist mucous membranes Resp Effort & Inspection: normal respiratory effort and able to speak in complete sentences Auscultation: clear to auscultation bilaterally Cardio Rate: regular rate Rhythm: regular rhythm Skin Other: Subtle rashes on forehead Extrem Other: No active synovitis Bilateral knee crepitus pain with full flexion-extension No elbow pain with flexion-extension Normal nailfold capillaroscopy Assessment & Plan Assessment & Plan (1) SLE (systemic lupus erythematosus): Comment: dx lupus in (arthralgias, rashes +SIDNEY, +RF +SSa, low C3 & C4, There is also history suspicious for ITP in 1996 HCQ [id number]. restarted 09/2023 Code(s): M32.9 - Systemic lupus erythematosus, unspecified Category: Medical Plan: This is a 44-year-old female with SLE who presents for follow-up. Doing very well overall. No signs suggestive of active SLE. No need for additional DMARDs. Her joint pains are likely due to degenerative arthritis. Advised patient to take Tylenol as needed Continue hydroxychloroquine 200 mg Twice daily Labs before next visit in 6 months (2) Long-term use of hydroxychloroquine: Code(s): Z79.899 - Other terminal makeup operator (current) drug therapy Category: Medical Plan: Discussed risk of retinopathy associated with hydroxychloroquine. 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 with her manager employment Plan I spent 24 minutes reviewing patient's chart, evaluating patient, ordering diagnostic workup, counseling patient and documenting in the chart Orders: Orders Complement C4 6 Months M32.9 - Systemic lupus erythematosus, unspecified Erythrocyte Sedimentation Rate 6 Months M32.9 - Systemic lupus erythematosus, unspecified Protein Creatinine Ratio, Ur 6 Months M32.9 - Systemic lupus erythematosus, unspecified UA w Microscopic 6 Months M32.9 - Systemic lupus erythematosus, unspecified Complete Blood Count Auto Diff 6 Months M32.9 - Systemic lupus erythematosus, unspecified Comprehensive Met. Panel 6 Months M32.9 - Systemic lupus erythematosus, unspecified Anti DNA DS Antibody 6 Months M32.9 - Systemic lupus erythematosus, unspecified Complement C3 6 Months M32.9 - Systemic lupus erythematosus, unspecified C Reactive Protein 6 Months M32.9 - Systemic lupus erythematosus, unspecified Medications: Refilled hydroxychloroquine 200 mg PO BID 180 tabs 1RF Coding Level of Care Code Est Pt Level 4 (69119) Diagnoses SLE (systemic lupus erythematosus) M32.9 Long-term use of hydroxychloroquine Z79.899
[2024-03-17 08:35] VITALS: BP 124/80; PULSE 85; O2SAT 97; BMI 29.3
== END 2024-03-17 08:47 | disposition home or self-care (01) ==
PROVIDERS: PCP Family Medicine; Visit Provider Student in an Organized Health Care Education/Training Program
DX: M32.9 Systemic lupus erythematosus, unspecified (principal); Z79.899 Other long term (current) drug therapy
CPT/HCPCS: 99214

== ENCOUNTER → 2024-03-17 08:30 | Outpatient (BNVA) | payer OTHER, SELFPAY | PROVIDERS: PCP Family Medicine; Visit Provider Student in an Organized Health Care Education/Training Program | DX: M32.9 Systemic lupus erythematosus, unspecified (principal); Z79.899 Other long term (current) drug therapy | CPT/HCPCS: 99212 ==

== ENCOUNTER → 2024-07-14 10:06 | Outpatient (BNVA) | payer OTHER, SELFPAY | PROVIDERS: PCP Family Medicine; Visit Provider Advanced Practice Midwife | DX: Z01.419 Encounter for gynecological examination (general) (routine) without abnormal findings (principal) | CPT/HCPCS: 99396; 99459 ==